=== PATIENT | male | born 1940 | race Caucasian/White ===

== ENCOUNTER 2017-10-20 21:42 | Emergency (ER) | payer MEDICARE, OTHER, SELFPAY ==
[2017-10-20 22:05] VITALS: BP 189/103; PULSE 63; RESP 16; TEMP 36.3; O2SAT 96; BMI 28.0
--- NOTE | 2017-10-20 22:30 | ED.ABDPAIN ---
HPI - Abdominal Pain General Chief Complaint: Abdominal Pain Stated Complaint: LOWER RIGHT SIDE STOMACH PAIN Time Seen by Provider: 10/20/17 21:43 Source: patient Mode of arrival: ambulatory Limitations: no limitations History of Present Illness HPI narrative: Patient is a 76-year-old male here for evaluation of right lower abdomen pain. He states that it has been off and on for the past week. He states that he has had a constant pain with sharp increases the pain. He also reports that he has had a bulge in his right inguinal area that comes and goes depending on his position. No testicular pain. Has had a hernia repair in the past but that has been many years ago. No change in bowel habits. No vomiting. No fevers. He came into the emergency department today because he finally told his about the symptoms who encouraged him to come to the ER. Related Data Home Medications Medication Instructions Recorded Confirmed CA PANTOTHENATE/FOLIC ACID/VIT 1 PO AMINS #0 12/05/10 (MULTIVITAMIN) metoprolol succinate [Toprol XL] 100 mg PO BID #0 06/26/12 rivaroxaban [Xarelto] 10 mg PO QPM #0 11/22/16 losartan 50 mg PO QDAY #0 02/13/17 nitroglycerin [Nitrostat] 0.4 mg SUBLINGUAL PRN PRN #0 02/13/17 sotalol 120 mg PO BID #0 02/13/17 Allergies Allergy/AdvReac Type Severity Reaction Status Date / Time No Known Drug Allergies Allergy Verified 10/20/17 22:10 Review of Systems Constitutional Denies fatigue and Denies fever(s) ENT Ears, Nose, Mouth, and Throat: Denies dysphagia, Denies vertigo and Denies dizziness Cardiovascular Denies chest pain and Denies dyspnea Respiratory Denies cough and Denies dyspnea Gastrointestinal Gastrointestinal: Reports abdominal pain, Denies dysphagia, Denies diarrhea, Denies nausea and Denies vomiting Genitourinary Denies genital lesions, Denies genital pain, Denies dysuria, Denies nocturia, Denies scrotal swelling and Denies testicular mass Musculoskeletal Denies myalgias and Denies arthralgias Integumentary/Breasts Denies lesions and Denies rash Neurologic Denies vertigo and Denies dizziness Endocrine Denies fatigue Hematologic/Lymphatic Denies easy bleeding and Denies easy bruising [facility] Medical History Cataract (lens) fragments in eye following cataract surgery, bilateral (Acute) Inguinal hernia (Acute) Social History Smoking Status: Never smoker Exam Initial Vital Signs Initial Vital Signs: Vital Signs Temperature 97.3 F L 10/20/17 22:05 Pulse Rate 63 10/20/17 22:05 Respiratory Rate 16 10/20/17 22:05 Blood Pressure 189/103 H 10/20/17 22:05 Pulse Oximetry 96 10/20/17 22:05 Const General: cooperative, healthy appearing and comfortable Orientation: alert, awake and oriented x3 HENMT Head: normal to inspection and normocephalic Resp Effort & Inspection: normal respiratory effort Auscultation: clear to auscultation bilaterally Cardio Rate: regular rate Rhythm: regular rhythm GI Inspection: non-distended Palpation: soft, No firm and No tender External: normal external exam and no edema Penis: normal penis Scrotum: scrotum normal Testes: normal Other: At the spot of tenderness in the right inguinal area I did feel what appears to be a defect in the abdominal wall. No protrusions from this area. No bowel felt. Skin Lesions: no lesions Rashes: no rashes Neuro General: alert, awake and oriented x3 Extrem General: normal to inspection Course Orders Ordered: ED Orders 10/20/17 23:05 Basic Metabolic Panel Stat Complete Blood Count AUTO DIFF Stat Lactate (Lactic Acid) Stat Vital Signs - 8 hr 10/20/17 22:05 10/20/17 23:30 10/21/17 00:22 Temperature 97.3 F L 97.9 F Pulse Rate 63 57 L 56 L Respiratory Rate 16 16 14 Blood Pressure 189/103 H 170/99 H Blood Pressure [Right Arm] 173/103 H Pulse Oximetry 96 98 99 MDM - Abdominal Pain Lab Data Attestation: I reviewed the patient's lab results. Result diagrams: 10/20/17 23:05 10/20/17 23:05 Lab Results 10/20/17 10/20/17 10/20/17 Range/Units 23:05 23:05 23:05 WBC 4.1 L (4.5-11.0) X10^3/uL RBC 4.93 (4.5-5.9) X10^6/uL Hgb 15.8 (13.5-17.5) g/dL Hct 45.3 (41-53) % MCV 92.0 (80-100) fL MCH 32.1 (26-34) PG MCHC 34.9 (30-36) % RDW 12.8 (11.6-14.8) % Plt Count 125 L (150-400) X10^3/uL Neut % (Auto) 55.8 (50-75) % Lymph % (Auto) 28.9 (25-40) % [place] % (Auto) 10.8 (3-14) % Eos % (Auto) 4.2 H (2-4) % Baso % (Auto) 0.3 (0-2) % Neut # (Auto) 2300 L (5483-0937) /uL Sodium 142 (137-145) mmol/L Potassium 4.1 (3.4-5.1) mmol/L Chloride 105 (98-107) mmol/L Carbon Dioxide 27 (22-32) mmol/L BUN 25 H (9-20) mg/dL Creatinine 1.50 H (0.66-1.25) mg/dL Estimated GFR 45.3 L (>60) mL/min BUN/Creatinine Ratio 16.7 (6-22) Glucose 100 (80-110) mg/dL Lactate 0.9 (0.7-2.1) mmol/L Calcium 9.4 (8.4-10.2) mg/dL MDM Narrative Medical decision making narrative: Patient with a relatively benign exam here in the emergency department. At the spot of greatest pain in his right inguinal region I did feel what appears to be a defect in the abdominal wall. This is concerning for a inguinal hernia. This also fits with his history of a ?bulging ?area down there. He states that it is not bulging currently. Will hold on a CT scan for now. Currently of low suspicion for AA incarcerated/strangulated hernia. We did discuss that he needed to contact his primary doctor to discuss the indications for a referral to see General surgery. He was given return precautions. He expressed understanding and agreement with plan. Discharge Plan Departure Patient Disposition: Home Clinical Impression: Abdominal pain Discharge Date/Time: 10/21/17 00:25 Interventions: ED Discharge Assessment Last Done: 10/21/17 00:22 Instructions: DI for Abdominal Pain-Adult Activity Restrictions/Additional Instructions: Your physical exam today is fairly consistent with a hernia. Recommend that you contact your primary doctor on Monday to discuss a consult to see General surgery. Return to the emergency department for any new symptoms, fevers, worsening abdominal pain, a bulge that does not go back in, change in her bowel habits. Like we discussed I also recommend that you spent time sitting on the couch with your feet elevated. Prescriptions: No Action CA PANTOTHENATE/FOLIC ACID/VIT (MULTIVITAMIN) 1 PO AMINS Qty: 0 RF: 0 metoprolol succinate [Toprol XL] 50 MG tablet extended release 24 hr 100 mg PO BID Qty: 0 RF: 0 rivaroxaban [Xarelto] 10 MG tablet 10 mg PO QPM Qty: 0 RF: 0 losartan 50 MG tablet 50 mg PO QDAY Qty: 0 RF: 0 sotalol 120 MG tablet 120 mg PO BID Qty: 0 RF: 0 nitroglycerin [Nitrostat] 0.4 MG tablet, sublingual 0.4 mg Sublingual PRN PRNQty: 0 RF: 0
[2017-10-20 23:23] LABS: Add Manual Diff / Slide Review NO; Basophils Percent Auto 0.3 % (0-2); Eosinophils Percent Auto 4.2 % (2-4); Hematocrit 45.3 % (41-53); Hemoglobin 15.8 g/dL (13.5-17.5); Lymphocytes Percent Auto 28.9 % (25-40); Mean Corpuscular HGB Conc 34.9 % (30-36); Mean Corpuscular Hemoglobin 32.1 PG (26-34); Monocytes Percent Auto 10.8 % (3-14); Neutrophils Absolute Auto 2300 /uL (3000-5900); Neutrophils Percent Auto 55.8 % (50-75); Platelet Count 125 X10^3/uL (150-400); Red Blood Cell Count 4.93 X10^6/uL (4.5-5.9); Red Cell Distribution Width 12.8 % (11.6-14.8); White Blood Cell Count 4.1 X10^3/uL (4.5-11.0)
[2017-10-20 23:29] LABS: Lactate (Lactic Acid) 0.9 mmol/L (0.7-2.1)
[2017-10-20 23:30] VITALS: BP 173/103; PULSE 57; RESP 16; TEMP 36.6; O2SAT 98
[2017-10-20 23:30] LABS: BUN Creatinine Ratio 16.7 (6-22); Blood Urea Nitrogen 25 mg/dL (9-20); Calcium 9.4 mg/dL (8.4-10.2); Carbon Dioxide 27 mmol/L (22-32); Chloride 105 mmol/L (98-107); Estimated Glomerular Filt Rate 45.3 mL/min (>60); Glucose 100 mg/dL (80-110); HEMOLYSIS 21 (0-50); Potassium 4.1 mmol/L (3.4-5.1); Sodium 142 mmol/L (137-145)
[2017-10-21 00:22] VITALS: BP 170/99; PULSE 56; RESP 14; O2SAT 99
== END 2017-10-21 00:25 | disposition home or self-care (01) ==
PROVIDERS: Emergency Provider Emergency Medicine
DX: R10.9 Unspecified abdominal pain (principal)
CPT/HCPCS: 36591; 80048; 83605; 85025; 99282; 99283

== ENCOUNTER 2017-12-25 08:10 | Emergency (ER) | payer MEDICARE, OTHER, SELFPAY ==
--- NOTE | 2017-12-25 08:13 | ED_ITS ---
HPI - Epistaxis General Chief complaint: Nasal Problem Stated complaint: nosebleed Time Seen by Provider: 12/25/17 08:12 Source: patient Mode of arrival: ambulatory Limitations: no limitations History of Present Illness HPI Narrative: 77-year-old male here for evaluation of a nosebleed. He is on Xarelto for atrial fibrillation. He states that the bleeding started this morning. He states that it seemed to be coming out of both nostrils. He did try pressure on his nose this morning for about an hour. He has had a nosebleed in the past requiring packing. Related Data Home Medications Medication Instructions Recorded Confirmed rivaroxaban [Xarelto] 10 mg PO QPM #0 11/22/16 12/25/17 losartan 25 mg PO BID #0 02/13/17 12/25/17 nitroglycerin [Nitrostat] 0.4 mg SUBLINGUAL PRN PRN #0 02/13/17 12/25/17 amlodipine 5 mg PO DAILY 12/25/17 12/25/17 carvedilol 1 tab PO BID 12/25/17 12/25/17 penicillin V potassium 250 mg PO QID 12/25/17 12/25/17 sotalol 120 mg PO DAILY 12/25/17 12/25/17 Allergies Allergy/AdvReac Type Severity Reaction Status Date / Time No Known Drug Allergies Allergy Verified 10/20/17 22:10 Review of Systems Constitutional Denies fever(s) ENT Ears, Nose, Mouth, and Throat: Reports epistaxis Comments: Blood coming from left nostril Cardiovascular Denies chest pain and Denies dyspnea Respiratory Denies dyspnea Integumentary/Breasts Denies rash Hematologic/Lymphatic Reports easy bleeding and Reports easy bruising [facility] Medical History Atrial fibrillation (Acute) Cataract (lens) fragments in eye following cataract surgery, bilateral (Acute) Inguinal hernia (Acute) Surgical History No pertinent past surgical history (Acute) Social History Smoking Status: Never smoker Exam Initial Vital Signs Initial Vital Signs: Vital Signs Temperature 97.2 F L 12/25/17 08:19 Pulse Rate 78 12/25/17 08:19 Respiratory Rate 16 12/25/17 08:19 Blood Pressure 182/106 H 12/25/17 08:19 Pulse Oximetry 99 12/25/17 08:19 Const General: cooperative, well developed, well groomed and No acute distress Orientation: alert, awake and oriented x3 Resp Effort & Inspection: normal respiratory effort Skin Lesions: no lesions Rashes: no rashes Neuro General: alert, awake and oriented x3 Extrem General: normal to inspection and capillary refill normal Psych Appearance: grossly normal and well kempt Procedures Epistaxis Control Time Out Performed: Yes Nostril: left Nose Prepped With: oxymetazoline Direct Inspection: yes and unable to visualize Clots Removed by: blowing nose and suction Cautery Used: none Device Inserted: hemostatic balloon Patient Tolerated Procedure: well and no complications Complications: continued epistaxis Course Orders Ordered: Discontinued Medications Oxymetazoline HCl (Afrin) 2 sprays NASAL NOW ONE Stop: 12/25/17 08:48 Last Admin: 12/25/17 08:48 Dose: 2 sprays Vital Signs - 8 hr 12/25/17 08:19 12/25/17 08:24 12/25/17 09:30 Temperature 97.2 F L 97.2 F L Pulse Rate 78 78 84 Respiratory Rate 16 16 16 Blood Pressure 182/106 H 182/106 H Blood Pressure [Left Arm] 144/84 H Pulse Oximetry 99 99 97 12/25/17 11:23 12/25/17 12:10 Temperature 97.4 F L Pulse Rate 68 88 Respiratory Rate 16 Blood Pressure 143/100 H Blood Pressure [Left Arm] 143/88 H Pulse Oximetry 97 99 MDM - Epistaxis MDM Narrative Medical decision making narrative: Unable to stop the bleeding with direct pressure. We were able to control it somewhat and it does seem to be of coming from the left nostril. I was unable to visualize the exact location of the bleeding. It seems to be posterior and the inferior turbinates on the left side is large enough for a cannot see it. I tried Afrin without any improvement. I did use a rhino rocket which seem to slow down the bleeding however he continued to ooze from the front to the point were he had to continue to wipe his nose. He reports that the blood running down the back of his throat has greatly improved. I discussed the case with Dr. Vences with ENT who offered to see the patient in his office. Will discharge the patient from the emergency department and sent him to the ENT office for evaluation. Discharge Plan Departure Patient Disposition: Home Clinical Impression: Epistaxis Interventions: ED Discharge Assessment Last Done: 12/25/17 12:10 Instructions: DI for Nosebleed Activity Restrictions/Additional Instructions: After discharge from the emergency department your to go to the [facility] ENT office to see Dr. Vences. He is expecting you. The phone number to the office is [phone]. I do recommend that you stop your Xarelto for this evening for until the bleeding stops. Call your primary care doctor for follow-up. Prescriptions: No Action rivaroxaban [Xarelto] 10 MG tablet 10 mg PO QPM Qty: 0 RF: 0 losartan 50 MG tablet 25 mg PO BID Qty: 0 RF: 0 nitroglycerin [Nitrostat] 0.4 MG tablet, sublingual 0.4 mg Sublingual PRN PRN (Reason: Chest Pain) Qty: 0 RF: 0 carvedilol 6.25 mg tablet 1 tab PO BID RF: 0 penicillin V potassium 500 mg tablet 250 mg PO QID RF: 0 amlodipine 5 mg tablet 5 mg PO DAILY RF: 0 sotalol 240 mg tablet 120 mg PO DAILY RF: 0
[2017-12-25 08:19] VITALS: BP 182/106; PULSE 78; RESP 16; TEMP 36.2; O2SAT 99
[2017-12-25 08:24] VITALS: BP 182/106; PULSE 78; RESP 16; TEMP 36.2; O2SAT 99
--- NOTE | 2017-12-25 08:32 | PC.NURSE ---
nasal clamp placed at triage
--- NOTE | 2017-12-25 08:45 | PC.NURSE ---
cont to have nasal clamp on md aware
[2017-12-25] MEDS: OXYMETAZOLINE NASAL SPRAY 15 ML 2 SPRAYS NASAL (08:48)
[2017-12-25 09:30] VITALS: BP 144/84; PULSE 84; RESP 16; O2SAT 97
[2017-12-25 11:23] VITALS: BP 143/88; PULSE 68; O2SAT 97
--- NOTE | 2017-12-25 11:59 | PC.NURSE ---
Andrea per Dr. Ramsey;
[2017-12-25 12:10] VITALS: BP 143/100; PULSE 88; RESP 16; TEMP 36.3; O2SAT 99
== END 2017-12-25 12:21 | disposition home or self-care (01) ==
PROVIDERS: Emergency Provider Emergency Medicine
DX: R04.0 Epistaxis (principal)
CPT/HCPCS: 30903; 30905; 99282; 99283

== ENCOUNTER → 2020-08-31 11:48 | Outpatient (CLI) | payer MEDICARE, OTHER, SELFPAY ==
--- NOTE | 2020-08-31 11:56 | DI.RAD.S_ITS ---
PROCEDURE: XR KNEE RT 3V INDICATIONS: RT KNEE PAIN TECHNIQUE: 3 views of the knee were acquired. COMPARISON: None. FINDINGS: Bones: No fracture. Moderate narrowing of the medial joint space. Scattered degenerative subchondral sclerosis and spurring. Soft tissues: Moderate joint effusion. IMPRESSION: Moderate osteoarthritis Moderate joint effusion. Dictated by: Roberto Carlos Lewis M.D. on 08/31/2020 at 13:22 Approved by: Roberto Carlos Lewis M.D. on 08/31/2020 at 13:23
== END ==
PROVIDERS: PCP Family Medicine; Referring Provider Family Medicine; Visit Provider Family Medicine
DX: M25.561 Pain in right knee (principal); M17.11 Unilateral primary osteoarthritis, right knee; M25.461 Effusion, right knee
CPT/HCPCS: 73562

== ENCOUNTER → 2020-10-14 08:59 | Outpatient (CLI) | payer MEDICARE, OTHER, SELFPAY ==
[2020-10-14 11:46] LABS: COVID19 -Nasal RAPID Negative (Negative)
== END ==
PROVIDERS: PCP Family Medicine; Visit Provider Student in an Organized Health Care Education/Training Program
DX: Z01.812 Encounter for preprocedural laboratory examination (principal); Z20.822 Contact with and (suspected) exposure to COVID-19
CPT/HCPCS: 87635; C9803

== ENCOUNTER → 2020-10-15 08:47 | Outpatient (CLI) | payer MEDICARE, OTHER, SELFPAY ==
--- NOTE | 2020-10-16 05:23 | DI.NM.S_ITS ---
DATE OF SERVICE: PROCEDURE: Pharmacological perfusion study. DATE OF STUDY: 10/15/2020 INDICATIONS: Nonsustained ventricular tachycardia with history of atrial fibrillation, hypertension, hyperlipidemia. RADIOPHARMACEUTICAL: 25.5 mCi technetium 99m Myoview IV was injected at stress and 11.4 mCi of technetium 99m Myoview IV was injected at rest. CARDIAC STRESS: The patient underwent IV Lexiscan perfusion study under the supervision of an attending staff as per standard protocol. Baseline rhythm was sinus with first degree AV block. During stress, no convincing ischemic changes or new arrhythmias seen. No chest pain. Patient remained hemodynamically stable with baseline blood pressure 108/60 and heart rate 63 beats per minute. RAW DATA: There is increased subdiaphragmatic activity. GATED STUDY: The resting LV ejection fraction is 66 percent and stress LV ejection fraction is 71 percent. Resting end diastolic volume is 61 mL. Lung/heart ratio is 0.32, which is within normal limits. No significant wall motion abnormality seen. TID ratio is 1.89, which is abnormal. MYOCARDIAL PERFUSION SCAN: The stress supine, resting supine and stress prone images were compared to each other. Stress supine images revealed small to moderate size, mildly decreased perfusion of the inferior wall extending into the inferolateral wall as well as inferior apex. Resting supine images also revealed similar defects. During stress prone images, inferior wall, inferior apical as well as inferolateral defect got completely resolved, suggestive of diaphragmatic tissue attenuation artifact. CONCLUSION: There is normal myocardial perfusion during stress prone images with evidence of diaphragmatic tissue attenuation artifact. However, the patient has abnormal TID. TID ratio 1.89, which is abnormal even for pharmacological stress test. Abnormal TID usually suggests left main or multivessel disease with possibility of balanced ischemia, which will not show up during perfusion. Correlate clinically and if clinical suspicion for coronary artery disease is high, consider left heart catheterization. Per [facility] - JESSICA/do/devang doc#: [id number]/job#: [id number] dd: 10/15/2020 17:55:00 dt: 10/16/2020 05:12:00 DICTATING MD/COPIES TO: Cayetano Alston MD; MARVEL Chun COPIES MNE: DORIAN;
== END ==
PROVIDERS: PCP Family Medicine; Referring Provider Nurse Practitioner Family; Visit Provider Nurse Practitioner Family
DX: R94.39 Abnormal result of other cardiovascular function study (principal); I47.2 Ventricular tachycardia; I48.91 Unspecified atrial fibrillation; I10 Essential (primary) hypertension; E78.5 Hyperlipidemia, unspecified
CPT/HCPCS: 78452; 93017; A9502; J2785

== ENCOUNTER 2020-11-15 03:22 | Emergency (ER) | payer MEDICARE, OTHER, SELFPAY ==
[2020-11-15] VITALS (8 sets, daily range): BP systolic 101–170; BP diastolic 61–82; PULSE 55–62; RESP 13–18; TEMP 36.2; O2SAT 95–98; BMI 23.3
[2020-11-15] MEDS: OXYMETAZOLINE NASAL SPRAY 15 ML 2 SPRAYS NASAL (03:49)
[2020-11-15] MEDS: SODIUM CHLORIDE 0.9% 1,000 ML 1000 ML IV (04:00)
--- NOTE | 2020-11-15 04:09 | ED.EPISTAXIS ---
HPI - Epistaxis General Chief complaint: Nasal Problem Stated complaint: Epistaxis Time Seen by Provider: 11/15/20 03:30 Source: patient and EMS Mode of arrival: EMS Limitations: no limitations History of Present Illness HPI Narrative: Patient is a 79-year-old male with history of atrial fibrillation on Eliquis with previous nose bleed requiring cauterization. Presenting today again with nose bleed. Starting suddenly a couple hours ago. They tried to control it at home but state it was pouring out. Running down his throat only using a towel to clamp it. No dizziness or lightheadedness. Related Data Home Medications Medication Instructions Recorded Confirmed rivaroxaban 10 mg tablet (Xarelto) 10 mg PO QPM #0 11/22/16 12/25/17 losartan 50 mg tablet 25 mg PO BID #0 02/13/17 12/25/17 nitroglycerin 0.4 mg sublingual 0.4 mg SUBLINGUAL PRN PRN #0 02/13/17 12/25/17 tablet (Nitrostat) amlodipine 5 mg tablet 5 mg PO DAILY 12/25/17 12/25/17 carvedilol 6.25 mg tablet 1 tab PO BID 12/25/17 12/25/17 penicillin V potassium 500 mg 250 mg PO QID 12/25/17 12/25/17 tablet sotalol 240 mg tablet 120 mg PO DAILY 12/25/17 12/25/17 Allergies Allergy/AdvReac Type Severity Reaction Status Date / Time No Known Drug Allergies Allergy Verified 11/15/20 03:29 Review of Systems Review of Systems Narrative: GENERAL: Denies chills,fever HEENT: See HPI RESPIRATORY: Denies dyspnea, cough, wheezing CARDIOVASCULAR: Denies chest pain, palpitations GASTROINTESTINAL: Denies nausea, vomiting MUSCULOSKELETAL: Denies extremity pain, injury SKIN: No rash, no laceration, no pruritus NEUROLOGIC: Denies weakness, dizziness, headache, numbness 8 point review of systems is negative except for those stated above and HPI Patient History Medical History (Updated 11/15/20 @ 06:20 by Miriam Noyola DO) Atrial fibrillation Cataract (lens) fragments in eye following cataract surgery, bilateral Inguinal hernia Surgical History No pertinent past surgical history Social History (Reviewed 12/25/17 @ 08:27 by JUANITA Zepeda Smoking Status: Never smoker Smoking Status: Never smoker alcohol intake frequency: 0-2 drinks per day Substance Use Type: does not use Exam Initial Vital Signs Initial Vital Signs: Vital Signs Temperature 97.2 F L 11/15/20 03:29 Pulse Rate 62 11/15/20 03:29 Respiratory Rate 18 11/15/20 03:29 Blood Pressure 144/81 H 11/15/20 03:29 Pulse Oximetry 98 11/15/20 03:29 GENERAL: Alert 79-year-old male active epistaxis HEENT: Significant blood clot in right there draining down throat still bleeding CARDIOVASCULAR: peripheral pulses in tact, cap refill <2 sec RESPIRATORY: No respiratory distress, speaks in full sentences without difficulty EXTREMITIES: Normal range of motion, no clubbing or edema. Neurovascularly intact NEUROLOGICAL: Cranial nerves II through XII grossly intact. Normal gait and speech. SKIN: Warm, dry, no petechiae, no rashes or lesions. Course Orders Ordered: ED Orders 11/15/20 04:00 Complete Blood Count AUTO DIFF Stat Comprehensive Metabolic Panel Stat Partial Thromboplastin Time Stat Prothrombin Time INR Stat Type and Screen Stat Discontinued Medications Tranexamic Acid 1,000 mg/ (Sodium Chloride) 100 mls @ 200 mls/hr IV NOW ONE Stop: 11/15/20 04:27 Last Admin: 11/15/20 04:05 Dose: Not Given Documented by: BRIAN Sodium Chloride (Normal Saline 0.9%) 1,000 mls @ 1,000 mls/hr IV BOLUS ONE Stop: 11/15/20 05:04 Last Admin: 11/15/20 04:00 Dose: 1,000 mls/hr Documented by: BRIAN Oxymetazoline HCl (Oxymetazoline Nasal [place] 15 Ml) 2 sprays NASAL NOW ONE Stop: 11/15/20 03:29 Last Admin: 11/15/20 03:49 Dose: 2 sprays Documented by: REBECCA Silver Nitrate/Potassium Nitrate (Silver Nitrate Stick) 2 each TOP NOW ONE Stop: 11/15/20 04:11 Last Admin: 11/15/20 04:29 Dose: 2 each Documented by: BRIAN Vital Signs Vital signs: Vital Signs - 8 hr 11/15/20 03:29 11/15/20 04:04 11/15/20 04:08 Temperature 97.2 F L Pulse Rate 62 55 L 57 L Respiratory Rate 18 Blood Pressure 144/81 H 101/61 Pulse Oximetry 98 95 95 11/15/20 04:30 11/15/20 05:00 11/15/20 05:30 Temperature Pulse Rate 57 L 58 L 61 Respiratory Rate 15 13 16 Blood Pressure 137/82 151/81 H Pulse Oximetry 96 96 97 11/15/20 05:31 Temperature Pulse Rate 59 L Respiratory Rate 14 Blood Pressure 170/81 H Pulse Oximetry 97 MDM - Epistaxis Lab Data Result diagrams: 11/15/20 04:00 11/15/20 04:00 Labs: Lab Results 11/15/20 11/15/20 11/15/20 Range/Units 04:00 04:00 04:00 WBC 6.7 (4.5-11.0) X10^3/uL RBC 4.58 (4.5-5.9) X10^6/uL Hgb 14.2 (13.5-17.5) g/dL Hct 42.8 (41-53) % MCV 93.4 (80-100) fL MCH 31.0 (26-34) PG MCHC 33.1 (30-36) % RDW 13.4 (11.6-14.8) % Plt Count 162 (150-400) X10^3/uL Neut % (Auto) 82.0 H (50-75) % Lymph % (Auto) 8.9 L (25-40) % [place] % (Auto) 5.7 (3-14) % Eos % (Auto) 2.2 (2-4) % Baso % (Auto) 1.2 (0-2) % Neut # (Auto) 5500 (6566-7635) /uL Lymph # (Auto) 600 L (4066-3917) /uL [place] # (Auto) 400 (0-900) /uL Eos # (Auto) 100 (0-450) /uL Baso # (Auto) 100 (0-100) /uL PT 14.6 H (10.1-12.7) SECONDS INR 1.3 (0.9-1.3) APTT 31 (26.4-36.2) SECONDS Sodium 138 (137-145) mmol/L Potassium 4.5 (3.4-5.1) mmol/L Chloride 106 (98-107) mmol/L Carbon Dioxide 27 (22-32) mmol/L BUN 21 H (9-20) mg/dL Creatinine 1.21 (0.66-1.25) mg/dL Estimated GFR 57.6 L (>60) mL/min BUN/Creatinine Ratio 17.4 (6-22) Glucose 144 H (80-110) mg/dL Calcium 8.9 (8.4-10.2) mg/dL Total Bilirubin 0.7 (0.2-1.3) mg/dL AST 27 (17-59) IU/L ALT 21 (<50) IU/L Alkaline Phosphatase 51 (38-126) U/L Total Protein 6.8 (6.3-8.2) g/dL Albumin 4.1 (3.5-5.0) g/dL Globulin 2.7 (1.7-4.1) g/dL Albumin/Globulin Ratio 1.5 (1.0-2.8) Blood Type Antibody Screen 11/15/20 Range/Units 04:00 WBC (4.5-11.0) X10^3/uL RBC (4.5-5.9) X10^6/uL Hgb (13.5-17.5) g/dL Hct (41-53) % MCV (80-100) fL MCH (26-34) PG MCHC (30-36) % RDW (11.6-14.8) % Plt Count (150-400) X10^3/uL Neut % (Auto) (50-75) % Lymph % (Auto) (25-40) % [place] % (Auto) (3-14) % Eos % (Auto) (2-4) % Baso % (Auto) (0-2) % Neut # (Auto) (1393-5720) /uL Lymph # (Auto) (0087-8711) /uL [place] # (Auto) (0-900) /uL Eos # (Auto) (0-450) /uL Baso # (Auto) (0-100) /uL PT (10.1-12.7) SECONDS INR (0.9-1.3) APTT (26.4-36.2) SECONDS Sodium (137-145) mmol/L Potassium (3.4-5.1) mmol/L Chloride (98-107) mmol/L Carbon Dioxide (22-32) mmol/L BUN (9-20) mg/dL Creatinine (0.66-1.25) mg/dL Estimated GFR (>60) mL/min BUN/Creatinine Ratio (6-22) Glucose (80-110) mg/dL Calcium (8.4-10.2) mg/dL Total Bilirubin (0.2-1.3) mg/dL AST (17-59) IU/L ALT (<50) IU/L Alkaline Phosphatase (38-126) U/L Total Protein (6.3-8.2) g/dL Albumin (3.5-5.0) g/dL Globulin (1.7-4.1) g/dL Albumin/Globulin Ratio (1.0-2.8) Blood Type A Positive Antibody Screen Negative MDM Narrative Medical decision making narrative: Initial nasal clamp was used however he was still dripping quite badly out of the right knee air. Afrin and rhino rocket used. It was left in for well over an hour. Patient had much improved symptoms did still had some dripping actually from the left naris and a little bit down the throat. He got up to use the restroom and was having some more dripping decided to take rhino rocket out to assess were bleeding was coming from. His eye rhino rocket was removed actually did not see any bleeding. Patient coughed up an extremely large blood clot. Overall feeling significantly better. No source of bleeding is found. Discharge Plan Departure Patient Disposition: Home Clinical Impression: Epistaxis Instructions: DI for Nosebleed Activity Restrictions/Additional Instructions: *You have been diagnosed with nose bleed *What to do: I am so happy that we got here nose to stop bleeding. You may need to see ENT if this continues. If you should have repeat nosebleed at home. Place nasal clamp and try and find a position that stops bleeding with pressure. If after holding pressure for 30-60 minutes you are still bleeding having significant blood is run down throat please return to emergency department *Continue to take medications as directed *Follow up with your primary care provider in 2-3 days *Return to ER if you should have recurrent persistent nose bleed, dizziness, lightheadedness any new, worsening or concerning symptoms Prescriptions: No Action rivaroxaban [Xarelto] 10 MG tablet 10 mg PO QPM Qty: 0 RF: 0 losartan 50 MG tablet 25 mg PO BID Qty: 0 RF: 0 nitroglycerin [Nitrostat] 0.4 MG tablet, sublingual 0.4 mg Sublingual PRN PRN (Reason: Chest Pain) Qty: 0 RF: 0 carvedilol 6.25 mg tablet 1 tab PO BID RF: 0 penicillin V potassium 500 mg tablet 250 mg PO QID RF: 0 amlodipine 5 mg tablet 5 mg PO DAILY RF: 0 sotalol 240 mg tablet 120 mg PO DAILY RF: 0 Referrals: Elie Guillory MD [Primary Care Provider] -
--- NOTE | 2020-11-15 04:14 | PC.NURSE ---
I was summoned to bedside by who stated pt was having trouble breathing. Pt reported feeling faint, taking deep breaths. BP 88/55. Reports he can still feel blood going down the back of his throat. Dr Noyola summoned to bedside , IV started to R AC, labs drawn. 1L NS bolus started per order. Pt reports feeling better with fluids.
[2020-11-15 04:17] LABS: Add Manual Diff / Slide Review NO; Basophils Absolute Auto 100 /uL (0-100); Basophils Percent Auto 1.2 % (0-2); Eosinophils Absolute Auto 100 /uL (0-450); Eosinophils Percent Auto 2.2 % (2-4); Hematocrit 42.8 % (41-53); Hemoglobin 14.2 g/dL (13.5-17.5); Lymphocytes Absolute Auto 600 /uL (1100-4500); Lymphocytes Percent Auto 8.9 % (25-40); Mean Corpuscular HGB Conc 33.1 % (30-36); Mean Corpuscular Volume 93.4 fL (80-100); Monocytes Absolute Auto 400 /uL (0-900); Monocytes Percent Auto 5.7 % (3-14); Neutrophils Absolute Auto 5500 /uL (1500-7000); Platelet Count 162 X10^3/uL (150-400); Red Blood Cell Count 4.58 X10^6/uL (4.5-5.9); Red Cell Distribution Width 13.4 % (11.6-14.8); White Blood Cell Count 6.7 X10^3/uL (4.5-11.0)
[2020-11-15 04:24] LABS: INR 1.3 (0.9-1.3); Prothrombin Time 14.6 SECONDS (10.1-12.7)
[2020-11-15 04:26] LABS: PTT Partial Thromboplastin Tim 31 SECONDS (26.4-36.2)
[2020-11-15 04:27] LABS: Alanine Aminotransferase 21 IU/L (<50); Albumin 4.1 g/dL (3.5-5.0); Albumin Globulin Ratio 1.5 (1.0-2.8); Alkaline Phosphatase 51 U/L (38-126); Aspartate Aminotransferase 27 IU/L (17-59); BUN Creatinine Ratio 17.4 (6-22); Bilirubin Total 0.7 mg/dL (0.2-1.3); Blood Urea Nitrogen 21 mg/dL (9-20); Calcium 8.9 mg/dL (8.4-10.2); Carbon Dioxide 27 mmol/L (22-32); Chloride 106 mmol/L (98-107); Estimated Glomerular Filt Rate 57.6 mL/min (>60); Globulin 2.7 g/dL (1.7-4.1); Glucose 144 mg/dL (80-110); HEMOLYSIS < 15 (0-50); Potassium 4.5 mmol/L (3.4-5.1); Sodium 138 mmol/L (137-145); Total Protein 6.8 g/dL (6.3-8.2)
== END 2020-11-15 07:14 | disposition home or self-care (01) ==
PROVIDERS: Emergency Provider Emergency Medicine; PCP Family Medicine
DX: R04.0 Epistaxis (principal); Z79.01 Long term (current) use of anticoagulants
CPT/HCPCS: 36415; 80053; 85025; 85610; 85730; 86850; 86900; 86901; 96360; 96361; 99284; A9270

== ENCOUNTER → 2021-01-04 11:51 | Outpatient (CLI) | payer MEDICARE, OTHER, SELFPAY ==
--- NOTE | 2021-01-04 11:54 | DI.US.S_ITS ---
PROCEDURE: US CAROTID DOPPLER BI INDICATIONS: CAD TECHNIQUE: Color and pulse Doppler interrogation was performed of both carotid systems, with image documentation and velocity measurements. COMPARISON: None. FINDINGS: Stenosis calculations are based on SRU (Society of Radiologists in Ultrasound) criteria. The flow velocities and the arterial waveforms are normal within both carotid arterial systems. The estimated degree of internal carotid artery stenosis is less than 50%. Antegrade flow is confirmed within both vertebral arteries. IMPRESSION: No hemodynamically significant stenosis is seen. Dictated by: Denilson Nino M.D. on 01/04/2021 at 13:04 Approved by: Denilson Nino M.D. on 01/04/2021 at 13:04
--- NOTE | 2021-01-04 13:04 | DI.CT.S_ITS ---
PROCEDURE: CT CHEST WO CON INDICATIONS: Atherosclerotic heart disease of [place] coronary artery disease TECHNIQUE: Noncontrast 5 mm thick sections acquired from the pulmonary apices to the posterior costophrenic angles. 1 mm lung window, 5 mm thick coronal and sagittal and 7 mm axial MIP reformats were then acquired. For radiation dose reduction, the following was used: automated exposure control, adjustment of mA and/or kV according to patient size. COMPARISON: [facility], CT, ABDOMEN WITH CONTRAST, 04/02/2007, 8:39. FINDINGS: Image quality: Excellent. Lungs and pleura: No acute air space opacities. No pleural effusions or pneumothorax. Central and peripheral airways are patent and normal in caliber. Mediastinum: Heart size is normal. There is moderate coronary artery calcification. No pericardial effusion. No mediastinal adenopathy by size criteria. Thoracic aorta and central pulmonary arteries are normal in size. Esophagus is normal in caliber. Small hiatal hernia. Bones and chest wall: No suspicious bony lesions. No vertebral body compression fractures. No axillary or supraclavicular adenopathy by size criteria. Thyroid gland is normal. Abdomen: Multiple cyst in the superior pole of the left kidney, partially visualized. The largest cyst measuring 6.9 x 9.2 cm. Visualized upper abdominal solid organs and bowel loops appear normal in the absence of contrast. IMPRESSION: 1. No acute abnormalities. 2. Moderate coronary artery calcification. 3. Small hiatal hernia. 4. Partial visualization of left renal cysts. Dictated by: Rajat Donato M.D. on 01/04/2021 at 14:55 Approved by: Rajat Donato M.D. on 01/04/2021 at 15:00
== END ==
PROVIDERS: PCP Family Medicine; Referring Provider Thoracic Surgery (Cardiothoracic Vascular Surgery); Visit Provider Thoracic Surgery (Cardiothoracic Vascular Surgery)
DX: I25.119 Atherosclerotic heart disease of native coronary artery with unspecified angina pectoris (principal); I42.8 Other cardiomyopathies; I71.2 Thoracic aortic aneurysm, without rupture; K44.9 Diaphragmatic hernia without obstruction or gangrene; N28.1 Cyst of kidney, acquired; I35.9 Nonrheumatic aortic valve disorder, unspecified; I48.0 Paroxysmal atrial fibrillation
CPT/HCPCS: 71250; 93880

== ENCOUNTER → 2021-01-21 10:44 | Outpatient (CLI) | payer MEDICARE, OTHER, SELFPAY ==
--- NOTE | 2021-01-21 | DI.RAD.S_ITS ---
PROCEDURE: XR CHEST 2V INDICATIONS: Paroxysmal atrial fibrillation TECHNIQUE: 2 views of the chest were acquired. COMPARISON: [facility], , CHEST 2 VIEW, 02/13/2017, 13:33. FINDINGS: Surgical changes and devices: Sternotomy wires. Lungs and pleura: Scattered subsegmental atelectasis and/or scarring. No focal consolidation. No pleural effusion or pneumothorax. Mediastinum: Mediastinal contours are normal. Heart size is normal. Bones and chest wall: Bilateral shoulder degenerative changes. There is diffuse spondylosis IMPRESSION: Scattered subsegmental atelectasis and/or scarring. No focal consolidation. Dictated by: Roberto Carlos Lewis M.D. on 01/21/2021 at 15:11 Approved by: Roberto Carlos Lewis M.D. on 01/21/2021 at 15:12
== END ==
PROVIDERS: PCP Family Medicine; Referring Provider Physician Assistant; Visit Provider Physician Assistant
DX: I48.0 Paroxysmal atrial fibrillation (principal); Z95.1 Presence of aortocoronary bypass graft
CPT/HCPCS: 71046

== ENCOUNTER → 2021-05-13 09:27 | Outpatient (CLI) | payer MEDICARE, OTHER, SELFPAY ==
[2021-05-13 10:12] LABS: Add Manual Diff / Slide Review NO; Basophils Absolute Auto 100 /uL (0-100); Basophils Percent Auto 2.3 % (0-2); Eosinophils Absolute Auto 200 /uL (0-450); Eosinophils Percent Auto 4.9 % (2-4); Hematocrit 46.7 % (41-53); Hemoglobin 15.2 g/dL (13.5-17.5); Lymphocytes Absolute Auto 700 /uL (1100-4500); Lymphocytes Percent Auto 17.5 % (25-40); Mean Corpuscular HGB Conc 32.5 % (30-36); Mean Corpuscular Volume 86.2 fL (80-100); Monocytes Absolute Auto 400 /uL (0-900); Neutrophils Absolute Auto 2600 /uL (1500-7000); Neutrophils Percent Auto 65.3 % (50-75); Platelet Count 155 X10^3/uL (150-400); Red Blood Cell Count 5.42 X10^6/uL (4.5-5.9); Red Cell Distribution Width 16.1 % (11.6-14.8)
[2021-05-13 10:38] LABS: Hemoglobin A1C% w Est Avg Glu 5.6 % (4.0-6.0)
[2021-05-13 10:43] LABS: BUN Creatinine Ratio 17.1 (6-22); Blood Urea Nitrogen 18 mg/dL (9-20); Calcium 9.4 mg/dL (8.4-10.2); Carbon Dioxide 32 mmol/L (22-32); Chloride 102 mmol/L (98-107); Estimated Glomerular Filt Rate > 60.0 mL/min (>60); Glucose 98 mg/dL (80-110); HEMOLYSIS < 15 (0-50); Potassium 4.4 mmol/L (3.4-5.1); Sodium 141 mmol/L (137-145)
== END ==
PROVIDERS: PCP Family Medicine; Referring Provider Orthopaedic Surgery; Visit Provider Orthopaedic Surgery
DX: M25.561 Pain in right knee (principal); R73.9 Hyperglycemia, unspecified; Z01.812 Encounter for preprocedural laboratory examination
CPT/HCPCS: 36415; 80048; 83036; 85025

== ENCOUNTER → 2021-05-31 10:17 | Outpatient (CLI) | payer MEDICARE, OTHER, SELFPAY ==
[2021-05-31 12:18] LABS: COVID19 -Nasal RAPID Negative (Negative)
== END ==
PROVIDERS: PCP Family Medicine; Visit Provider Nurse Practitioner Family
DX: Z20.822 Contact with and (suspected) exposure to COVID-19 (principal)
CPT/HCPCS: 87635; C9803

== ENCOUNTER 2021-06-02 08:12 | Day surgery (SDC) | payer MEDICARE, OTHER, SELFPAY ==
[2021-05-24 08:28] VITALS: BMI 26.4
[2021-06-02] VITALS (15 sets, daily range): BP systolic 82–130; BP diastolic 57–85; PULSE 58–67; RESP 10–21; TEMP 35.9–36.6; O2SAT 94–98; BMI 25.9
--- NOTE | 2021-06-02 06:00 | DI.RAD.S_ITS ---
PROCEDURE: XR KNEE RT 1TO2V INDICATIONS: Post op total knee TECHNIQUE: 2 view(s) of the knee acquired. COMPARISON: [facility], CR, XR KNEE RT 3V, 08/31/2020, 11:53. FINDINGS: Bones: Patient is status post knee joint arthroplasty. Hardware components are in expected positions. Visualized bony structures are intact. Soft tissues: Overlying postoperative changes are noted. IMPRESSION: Expected appearance of right knee arthroplasty. Dictated by: Nataliia Nguyen M.D. on 06/02/2021 at 13:40 Approved by: Nataliia Nguyen M.D. on 06/02/2021 at 13:40
[2021-06-02] MEDS: CELECOXIB 200 MG CAPSULE PO (08:55)
[2021-06-02] MEDS: ACETAMINOPHEN 325 MG TABLET 975 MG PO (08:55)
[2021-06-02] MEDS: PREGABALIN 75 MG CAPSULE PO (08:56)
[2021-06-02] MEDS: LACTATED RINGERS 1,000 ML 42 ML IV ×2 (08:58→11:38)
--- NOTE | 2021-06-02 09:53 | PM.PREOP ---
Pre-operative Note COVID-19 COVID-19 status: Negative Result date/Date tested (Pos, Neg/Pending): 05/31/21 Interval Note History & Physical reviewed/Exam performed by Physician: Yes Changes to H&P: No
--- NOTE | 2021-06-02 10:30 | SUR.PREOP ---
Block start time [1030] . Monitoring initiated and maintained throughout procedure. Oxygen at 2LNP and medications given per/by anesthesiologist instructions. Patient tolerated lowered blood pressure without dizzyness or light headedness throughout procedure, no adverse reactions noted. Dr. Beard was aware of hypotension. Block end time [1040].
[2021-06-02] MEDS: CEFAZOLIN 2 GM/20 ML SYRINGE IV (11:12)
[2021-06-02] MEDS: TRANEXAMIC ACID 1,000 MG VIAL 1000 MG INJ (11:24)
--- NOTE | 2021-06-02 11:26 | SUR.OPER ---
Supine on padded OR bed. Pillow under head, arms secured on padded armboards <90 degree abduction. Safety belt across torso. Non-operative leg secured with tape over blanket over lower leg. Operative leg secured in DeMayo/Goldy/Nathe positioner. Foam padded brace at thigh of operative leg.
[2021-06-02] MEDS: BUPIVACAINE 0.25% (PF) 60 ML, EPINEPHrine 0.3 MG INJ (11:35)
[2021-06-02] MEDS: BUPIVACAINE LIPOSOME 266 MG/20 ML VIAL INJ (11:37)
[2021-06-02] MEDS: MORPHINE 4 MG/ML INJ INJ (12:00)
--- NOTE | 2021-06-02 12:40 | P.OP_ITS ---
Operative Date/Time/Diagnoses Date of procedure: 06/02/21 Time of procedure: 12:40 Pre-op diagnosis: Right knee osteoarthritis Post-op diagnosis: same Procedure & Clinicians Procedure: Right total knee replacement Same procedure as scheduled: Yes Indications: The patient has had progressively worsening right knee pain with radiographic changes consistent with arthritis. Non-operative management has failed and the patient has requested total knee replacement. The risks, benefits and alternatives to surgery were discussed with the patient prior to proceeding. Risks discussed included, but were not limited to, failure to relieve pain, stiffness, infection, nerve damage, deep venous thrombosis, pulmonary embolism, stroke, coma, heart attack, permanent paralysis and , as well as the potential need for eventual revision of the prosthetic. Surgeon: [facility] Counselor: Devon Kaye Click Yes if Unassisted: No Anesthesia Type: General, Spinal, Peripheral nerve block and Local Operative Notes Findings: Severe medial osteoarthritis with moderate lateral and patellofemoral osteoarthritis. Closure Type: primary Specimen(s): none sent Prosthetic devices, grafts, tissues, transplants, or devices: Implants used in this procedure were manufactured by the [employer] and [employer] and included the BCS II Journey total knee replacement with a size 5 cobalt chromium femoral component, size 6 right non porous tibial base plate, a 15 mm cross-linked polyethylene tibial insert and a 38 mm oval Rocio II patella. Applied: implant(s) Estimated Blood Loss (mL): 25 Blood products transfused: none Tourniquet time (min): 52 Procedure in detail: The patient was seen in the pre-operative area, where the patient identified the right knee as the operative site and this was marked with my initials. The patient received pre-operative antibiotics, and was taken to the operating room and placed on the operative table in the supine position. After satisfactory anesthesia, a inspector timers out was performed. The right leg was encircled with a tourniquet about the proximal thigh, and the leg was prepared from the toes to the tourniquet with ChloroPrep in the usual fashion and draped through sterile drapes. The leg was elevated and exsanguinated with Eschmark bandage and the tourniquet inflated to 250 mmHg pressure. The knee was approached through an approximately 18 cm incision centered over the patella and carried into the knee through a medial parapatellar arthrotomy. The anterior osteophytes and soft tissues were removed. The rotational landmarks of Alfredo's line and the transepicondylar axis were marked on the femur with electrocautery, and intramedullary guide holes for the femur and tibia were crea charlene. The distal femoral cut was made in 6 degrees of valgus using the intramedullary guide at the primary cut setting. The proximal tibial cut was then made using the intramedullary guide, taking 9 mm of bone off the less involved side. The extension gap was checked and the rotation of the femoral component confirmed with the gap balancing system. The anterior, posterior and chamfer cuts were then made. The posterior osteophytes and soft tissues were then removed. The posterior capsule was injected with part of a mixture of 50 ml 0.25% Marcaine mixed with 20 ml Exparel and 4 mg of morphine for post-operative pain control. The remainder of this mixture was injected into the capsule and subcutaneous tissues during cement curing. The tibia was prepared with the rotation set by an extra medullary guide. Trial tibial and femoral components were then placed and the intercondylar notch cut through the femoral trial. Range of motion was 0-135 degrees, with good stability throughout the range. The patella was then cut to accommodate the patellar prosthetic. There was no need for a lateral release. The trials were then removed, and the femoral hole plugged with a bone plug. The bone was prepared with pulsatile lavage, and dried with a sponge. Cement was applied and the final prosthetics placed. Excess cement was removed during and after cement curing. After confirming there was no extruded cement posteriorly, the final tibial insert was placed. The knee was copiously irrigated and the tourniquet deflated. Hemostasis was obtained. The capsule was closed with interrupted # 2 polyester suture. The subcutaneous layer was closed with 3-0 Vicryl, and the skin with a running 3-0 V-Lock suture and Dermabond. An Aquacel Ag dressing was applied and the patient was taken to recovery having tolerated the procedure well. Complications: none Post-operative Condition: stable Disposition: PACU Plan for aftercare: The patient will be maintained on a standard total knee replacement protocol with weight bearing as tolerated. The patient will receive aspirin and sequential compression devices for DVT prophylaxis. The patient will be discharged home when safe for the home environment.
[2021-06-02] MEDS: IBUPROFEN 400 MG TABLET PO ×3 (15:09→21:15)
[2021-06-02] MEDS: ACETAMINOPHEN 325 MG TABLET 650 MG PO ×2 (15:10→21:14)
[2021-06-02] MEDS: LACTATED RINGERS 1,000 ML 100 ML IV (15:13)
--- NOTE | 2021-06-02 15:25 | PT.IIE ---
Current Diagnoses Unilateral primary osteoarthritis, right knee (06/02/21) Surgery Performed Operation Date: 06/02/21 10:00 Actual Procedures p Total Knee Arthroplasty(Right) - Paolo Kauffman MD Medical History (Last Reviewed 06/02/21 @ 09:07 by Timothy Clark RN) Aortic valve disease Atrial fibrillation BCC (basal cell carcinoma) CAD (coronary artery disease) Cataract (lens) fragments in eye following cataract surgery, bilateral HLD (hyperlipidemia) HTN (hypertension) Inguinal hernia Nonischemic cardiomyopathy NSVT (nonsustained ventricular tachycardia) Osteoarthritis Sinus bradycardia Thoracic aortic aneurysm without rupture Physical Therapy Inpatient Evaluation/Re-Eval M1 PT/OT-IP Prior Functional Status Start: 06/02/21 16:54 Freq: NEEDED Status: Active Protocol: Document 06/02/21 15:25 AB (Rec: 06/02/21 17:05 AB [id number]) Medical Review Prior Functional Status Medical History Reviewed Yes Communication able to make needs known Mobility and Gait pt stated that he is indpeendent with all mobilities and ambulation without AD but occasionally uses a SPC depending on knee pain Social History Household Members spouse Living Arrangements House Number of Floors (Floors) Two Floors Number of Stairs To Enter/Railing? split level house : 7 steps wide rails to enter the house and then 7 steps R rail to get to bedroom level Home Environment High Toilet,Walk in Shower Home Equipment Front Wheel Walker,Straight Cane,Raised Toilet Seat w/ Armrests,Shower Seat with Backrest,Hand Held Shower Additional Social History Comment pt has a toilet safety frame M2 PT-IP Current Condition Start: 06/02/21 16:54 Freq: NEEDED Status: Active Protocol: Document 06/02/21 15:25 AB (Rec: 06/02/21 17:05 AB [email or web address]) Physical Therapy Current Condition Current Condition Evaluation Date 06/02/21 Treatment Diagnosis s/p R TKA; difficulty in walking Onset Date 06/02/21 M3 PT-IP Subjective Start: 06/02/21 16:54 Freq: NEEDED Status: Active Protocol: Document 06/02/21 15:25 AB (Rec: 06/02/21 17:05 AB [id number]) Subjective Physical Therapy Visit Type Type Initial Evaluation Visit Start Time 15:25 Visit Stop Time 16:21 Total Visit Minutes 56 Number of JAVA SOFTWARE Visits 0 Physical Therapy Visit Comments Patient Comments agreeable to do PT Therapy Pain Assessment Pain Present Pain Present Denied Pain M4 PT-IP Mobility and Gait Start: 06/02/21 16:54 Freq: NEEDED Status: Active Protocol: Document 06/02/21 15:25 AB (Rec: 06/02/21 17:05 [email or web address]) PT-Bed Mobility Assessment Supine to Sit Supine to Sit Minimal Assistance,1 Person Assistance Sit to Supine Sit to Supine Standby Assistance PT-Transfer Assessment Sit to and From Stand Sit to and from Stand Maximum Assistance,2 Person Assistance,Use of Upper Extremities Equipment Transfer Assistive Device Gait Belt,Front Wheeled Walker Orthotic/Prosthetic Devices or Brace: No Comments Mobility Comments spouse in room with pt. pt able to move his legs but stated that sensation is not back. can only feel 50% on LLE and ~ 20 % on RLE. completed supine to sit min A and cues for techniques. able to sit on EOB SBA. c/o lightheadedness. BP: 130/68. completed sit to stand max A x 2 and cues. initial max A x 2 for standing balance but after cueing for COG able to stand max A. pt able to take side steps to HOB mod to max A x 2 and max cues. completed sit to supine SBA. positioned pt in bed. call light and table placed within reach. Gait Assessment Comments Gait Comments steps towards HOB; further ambulation not attempted for safety due to pt's decrease LE sensation PT-Balance Assessment Sitting Balance and Reactions Static Sitting Balance Ability Good Dynamic Sitting Balance Ability Fair Standing Balance and Reactions Static Standing Balance Ability Poor Dynamic Standing Balance Ability Poor Device Used FWW M5 PT-IP Objective Assessments Start: 06/02/21 16:54 Freq: NEEDED Status: Active Protocol: Document 06/02/21 15:25 AB (Rec: 06/02/21 17:05 AB [id number]) Orientation Orientation/Cognition Level of Alertness Alert Orientation Name,Place,Situation Language Function Ability No Deficits Noted Safety Awareness Decreased Safety Awareness Memory Description No Deficits Noted Gross Range of Motion Lower Extremity ROM Assessment Within Functional Limits Strength Lower Extremity Strength Hip 4/5 Knee 4-/5 Coordination Assessment Gross Coordination Gross Coordination WNL Sensation Assessment Sensation Sensation Description Numbness Comments Sensation Comments stated that his BLE are still numb Muscle Tone Muscle Tone WNL Yes M6 PT-IP Treatment Start: 06/02/21 16:54 Freq: NEEDED Status: Active Protocol: Document 06/02/21 15:25 AB (Rec: 06/02/21 17:05 [email or web address]) Physical Therapy Treatment Exercises Exercises Heel Slides Education Education Provided Precautions,Weight Bearing Status,Post-Op Packet,Safety M7 PT-IP Assessment and Plan Start: 06/02/21 16:54 Freq: NEEDED Status: Active Protocol: Document 06/02/21 15:25 AB (Rec: 06/02/21 17:05 [email or web address]) PT Summary Assessment and Plan Potential Rehabilitation Potential Good Status of Condition at Evaluation Evolving Summary Impairments Pain,ROM,Strength,Balance, Coordination,Sensation,Tone, Cognition,Bed Mobility, Transfers,Gait,Activity Tolerance Assessment Summary pt s/p R TKA and just had surgery this morning. pt with LE motor control but still has decrease LE sensation affecting mobility and requiring 2 person assist at this time. pt will likely progress with mobility during hospital stay. caregiver training scheduled for tomorrow at 10 am. will continue to assess progress. Goals Bed Mobility Goal Independent Transfer Goal Independent,Front Wheeled Walker Gait Goal Independent,Front Wheel Walker Gait Distance 200 Other Goals up/down 7+7 steps R rail SBA Days to Meet Goals 5 Frequency of Treatment Frequency Of Treatment Twice a Day Treatment Plan Physical Therapy Treatment Plan Bed Mobility Training,Transfer Training,Gait Training, Therapeutic Exercise,Balance Retraining,Post Op Education, Discharge Planning,Hot or Cold Pack,Neuromuscular Re-ed, Coordination Retraining,Manual Therapy Other Recommendations and Next Treatment caregiver training 06/03 at 10 Focus am Weight Bearing Status Weight Bearing Status Weight Bear as Tolerated Allowed Weight Bearing Amount (enter % RLE WBAT or #) (%) Recommendations To Nursing Amount of Assist Needed 2 Person Assist Discharge Recommendations PT Discharge Recommendations Home with Assistance, Outpatient PT Transportation Needs at Discharge Private Vehicle
[2021-06-02] MEDS: OXYCODONE IR 5 MG TABLET PO ×2 (17:15→21:16)
[2021-06-02] MEDS: ATORVASTATIN 20 MG TABLET PO (17:16)
[2021-06-02] MEDS: ASPIRIN EC 81 MG TABLET PO (21:14)
[2021-06-02] MEDS: SOTALOL 80 MG TABLET 160 MG PO (21:14)
[2021-06-02] MEDS: METOPROLOL ER 50 MG TABLET PO (21:17)
[2021-06-02] MEDS: DOCUSATE 100 MG CAPSULE PO (21:17)
[2021-06-03] MEDS: IBUPROFEN 400 MG TABLET PO ×3 (01:54→09:21)
[2021-06-03] MEDS: LACTATED RINGERS 1,000 ML 100 ML IV (01:55)
[2021-06-03 01:58] VITALS: BP 123/72; PULSE 54; RESP 16; TEMP 36.9; O2SAT 96
[2021-06-03 05:19] LABS: Hematocrit 37.4 % (41-53); Hemoglobin 12.4 g/dL (13.5-17.5)
[2021-06-03 05:25] VITALS: BP 113/77; PULSE 60; RESP 16; TEMP 36.3; O2SAT 95
--- NOTE | 2021-06-03 07:43 | PM.DS.1 ---
History of Present Illness History of Present Illness Date Patient Seen: 06/03/21 Time Patient Seen: 07:43 Chief complaint: Knee pain Narrative: Knee pain is mild. Denies fever or chills. No nausea vomiting. Discharge Providers Provider Discharge Date: 06/03/21 Primary care physician: Elie Guillory MD Consults: 06/02/21 13:22 Consult to Discharge Planning Routine Comment: Consult to Physical Therapy Evaluate & Treat Comment: Physician Instructions: postop TKA protocol Discharge provider: Devon Kaye PA-C Summary Hospital Course Discharge Diagnosis: Right knee osteoarthritis Hospital Course: Right total knee replacement Same procedure as scheduled: Yes Indications: The patient has had progressively worsening right knee pain with radiographic changes consistent with arthritis. Non-operative management has failed and the patient has requested total knee replacement. The risks, benefits and alternatives to surgery were discussed with the patient prior to proceeding. Risks discussed included, but were not limited to, failure to relieve pain, stiffness, infection, nerve damage, deep venous thrombosis, pulmonary embolism, stroke, coma, heart attack, permanent paralysis and , as well as the potential need for eventual revision of the prosthetic. Surgeon: Paolo Kauffman Art Director: Devon Kaye Click Yes if Unassisted: No Anesthesia Type: General, Spinal, Peripheral nerve block and Local Operative Notes Findings: Severe medial osteoarthritis with moderate lateral and patellofemoral osteoarthritis. Closure Type: primary Specimen(s): none sent Prosthetic devices, grafts, tissues, transplants, or devices: Implants used in this procedure were manufactured by the [employer] and [employer] and included the BCS II Journey total knee replacement with a size 5 cobalt chromium femoral component, size 6 right non porous tibial base plate, a 15 mm cross-linked polyethylene tibial insert and a 38 mm oval Rocio II patella. Applied: implant(s) Estimated Blood Loss (mL): 25 Blood products transfused: none Tourniquet time (min): 52 Patient mid to the hospital for right total knee arthroplasty. Patient consented to the same. Patient taken operating room on June 02, 2021 underwent right total knee arthroplasty. Patient is back in his room recovering well as in stable condition. Patient will be discharged home today in stable condition if safe for home environment. Status at Discharge Cognitive/behavioral status at discharge: at baseline, oriented Functional status at discharge: uses cane/walker Overall status at discharge: patient is progressing back to baseline Exam Vital Signs (past 8 hours): - 06/03/21 01:58 06/03/21 05:25 Temperature 98.4 F 97.4 F L Pulse Rate 54 L 60 Respiratory Rate 16 16 Blood Pressure 123/72 113/77 Pulse Oximetry 96 95 Oxygen Delivery Method Room Air Oxygen Flow Rate 0 Narrative Exam Narrative: 80-year-old male resting comfortably in bed in no apparent distress. Dressing is Clean, dry, intact.. Motor functions intact bilateral lower extremities. Sensation grossly intact to light touch bilateral lower extremities. Const General: cooperative Orientation: alert Objective Labs Result Diagrams: 06/03/21 04:55 Labs: Laboratory Results - last 24 hr 06/03/21 04:55 Hgb 12.4 L Hct 37.4 L PFSH Medical History Aortic valve disease Atrial fibrillation BCC (basal cell carcinoma) CAD (coronary artery disease) Cataract (lens) fragments in eye following cataract surgery, bilateral HLD (hyperlipidemia) HTN (hypertension) Inguinal hernia Nonischemic cardiomyopathy NSVT (nonsustained ventricular tachycardia) Osteoarthritis Sinus bradycardia Thoracic aortic aneurysm without rupture Surgical History H/O cardiac radiofrequency ablation History of surgical procedure (06/2012) Hx of bilateral cataract extraction Hx of hernia repair Hx of tonsillectomy (1943) 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) Social History household members: spouse Smoking Status: Never smoker alcohol intake: never Discharge Assessment & Plan Assessment and Plan Assessment: Patient progressing as expected status post right total knee replacement Plan of Treatment: Multimodal pain management Mobilize with physical therapy Discharge home today after physical therapy if safe for home environment Discharge Plan Discharge Plan Patient Disposition: Home Discharge orders & Medications Discharge Orders: Discharge (Order); Ordered 06/03/21 Ordered By: Devon Kaye Prescriptions: New acetaminophen 325 mg Tablet 650 mg PO TID Qty: 60 0RF aspirin 81 mg Tablet,Delayed Release (Dr/Ec) 81 mg PO BID Qty: 60 0RF ibuprofen 400 mg Tablet 400 mg PO Q4HR Qty: 60 0RF oxycodone 5 mg Tablet 5 mg PO Q3HR PRN (Reason: Pain, Moderate (4-6)) Qty: 60 0RF Continued sotalol 160 mg Tablet 160 mg PO BID 0RF atorvastatin 20 mg Tablet 20 mg PO QPM 0RF metoprolol succinate 50 mg Tablet Extended Release 24 Hr 50 mg PO BID 0RF Follow up/Referrals: Paolo Kauffman MD [Physician] - (2 weeks) Elie Guillory MD [Primary Care Provider] - Diet/Activity/Treatments Diet: Diet as Tolerated Activity: Weight-bearing as tolerated Cold/Heat Therapy: Ice to knee as needed Skin/Wound/Dressing Care Report to your healthcare provider any signs of infection, such as:: chills, fever, increased pain, unusual drainage and unusual redness Dressing: Keep dressing clean and dry, may remove Gustavo wrap after 24-48 hours, leave dressing in place Visit Report/Discharge Packet Instructions: DI for Knee Replacement Stand Alone Forms: Surgery Discharge Discharge Data Primary Care Provider: Elie Guillory Attending Provider: Paolo Kauffman Quality VTE Deep Vein Thrombosis/Pulmonary Embolism Present on Admission: No
[2021-06-03 08:00] VITALS: BP 116/73; PULSE 81; RESP 19; TEMP 36.6; O2SAT 94
[2021-06-03] MEDS: ACETAMINOPHEN 325 MG TABLET 650 MG PO (09:20)
[2021-06-03] MEDS: METOPROLOL ER 50 MG TABLET PO (09:21)
[2021-06-03] MEDS: DOCUSATE 100 MG CAPSULE PO (09:21)
[2021-06-03] MEDS: ASPIRIN EC 81 MG TABLET PO (09:21)
[2021-06-03] MEDS: OXYCODONE IR 5 MG TABLET PO (09:22)
[2021-06-03] MEDS: SOTALOL 80 MG TABLET 160 MG PO (09:22)
--- NOTE | 2021-06-03 11:01 | PT.IPTN ---
Current Diagnoses Unilateral primary osteoarthritis, right knee (06/02/21) Surgery Performed Operation Date: 06/02/21 10:00 Actual Procedures p Total Knee Arthroplasty(Right) - Paolo Kauffman MD Physical Therapy Treatment Note M2 PT-IP Current Condition Start: 06/02/21 16:54 Freq: NEEDED Status: Discharge Protocol: Document 06/03/21 10:08 SP (Rec: 06/03/21 16:04 SP [id number]) Physical Therapy Current Condition Current Condition Evaluation Date 06/02/21 Treatment Diagnosis s/p R TKA; difficulty in walking Onset Date 06/02/21 M3 PT-IP Subjective Start: 06/02/21 16:54 Freq: NEEDED Status: Discharge Protocol: Document 06/03/21 10:08 SP (Rec: 06/03/21 16:04 SP [id number]) Subjective Physical Therapy Visit Type Type Treatment Note Visit Start Time 10:08 Visit Stop Time 11:01 Total Visit Minutes 53 Notes present when arrived. She donned gait belt and provided assist requried during tx. Extra time with answering questions and wanting to review ex and mobility for assurance. Vitals during tx: supine: BP 116/ 73 HR 58 Seated: 126/76 HR 60 SaO2 96% on RA. nonsymptomatic/ denied dizziness throughout tx. Number of TRUCKMAN Visits 1 Physical Therapy Visit Comments Patient Comments Pt willing to work with therapy. Patient Goals Return home with to assist him and already set up with outpt therapy. Therapy Pain Assessment Pain When Pain Assessed During Mobility Pain Present Pain Present Pain Reported Location Right Knee Intensity 1 Scale Used at rest, little more with mobility Description With Movement Pain Behaviors Facial Grimacing Pain Management Techniques Distraction,Modification of Treatment,Re-positioning, Timing of Activity with Medications M4 PT-IP Mobility and Gait Start: 06/02/21 16:54 Freq: NEEDED Status: Discharge Protocol: Document 06/03/21 10:08 SP (Rec: 06/03/21 16:04 SP [id number]) PT-Bed Mobility Assessment Supine to Sit Supine to Sit Standby Assistance Scooting Scooting to Edge of Bed Standby Assistance PT-Transfer Assessment Sit to and From Stand Sit to and from Stand Contact Guard Assistance,1 Person Assistance,Use of Upper Extremities Equipment Transfer Assistive Device Gait Belt,Front Wheeled Walker Orthotic/Prosthetic Devices or Brace: No Transfers Transfer Destination Chair,Wheelchair Transfer Technique pt ambulated using FWW Transfer Ability Level of Assist Contact Guard Assistance,Use of Upper Extremities Comments Mobility Comments Pt supine when arrived, in room. Instructed post op exercises: 5 reps each. supine >sit, scoot to EOB SBA. donned gait belt. SIt>stand CGA, cued quad facilitation for awareness of RLE knee extension for stabiltiy for gait, improved more extension with wt shift pre gait. Progressed gait in hallway to stairs w/ FWW cGA approx 110 ft 1 brief stop stand rests w/ c follow for safety if needed. Pt rested in w/c at stairs. Completed 15 stairs R HR and SPC in LUE to assimulated stair mgt into home and bedroom, CGA via . Pt required 2 stand rests during sets stairs for tiring recovery. Pt requested seated rest in w/c and assist back to room in w/c, due to tiring post stairs. Pt sit>Stand and gait to chair 15 ft step pivot using FWW CGA- close SBA and slow descend to chair proper hand placement, cGA-SBA. Pt ok to return home with to assist him when medically cleared. Gait Assessment Gait Gait Assistance Required: Contact Guard Assist,1 Person Assist Distance (Feet) 110 Able to Maintain Weight Bearing Status Yes During Gait Assistive Devices Assistive Device Gait Belt,Front Wheeled Walker Orthotic/Prosthetic Devices or Brace: No Gait Deviations General Gait Pattern Antalgic,Decreased Stride Length,Decreased Feet Clearance,Step-to Gait Factors Limiting Gait Function Factors Limiting Gait Function Decreased Activity Tolerance, Decreased Strength,Limited Range of Motion,Pain Comments Gait Comments Cued for quad facilitation during stance phase, fair knee flexion during swing phase. stagger step patterning once in hallway, step to in room initially. Stair Climbing Assessment Evaluation Level of Assist On Stairs Contact Guard Assistance,1 Person Assistance Devices Stair Climbing Assistive Devices Front Wheel Walker Technique/Endurance Stair Climbing Direction Ascend and Descend Stair Climbing Technique Step to Step Number of Steps Climbed 3 Stair Climbing Set # Repetitions (reps) 5 Comments Stair Climbing Comments Step to patterning, cued x1 for SPC placement advance step . cued RLE quad facilitation during LLE advancement. Cue x1 for body positioning and hand placement on belt along with other UE on rail for self support for safety. IMproved each set stairs. PT-Balance Assessment Sitting Balance and Reactions Static Sitting Balance Ability Normal Dynamic Sitting Balance Ability Normal Standing Balance and Reactions Static Standing Balance Ability Good Dynamic Standing Balance Ability Fair Device Used FWW M5 PT-IP Objective Assessments Start: 06/02/21 16:54 Freq: NEEDED Status: Discharge Protocol: Document 06/02/21 15:25 AB (Rec: 06/02/21 17:05 AB [id number]) Orientation Orientation/Cognition Level of Alertness Alert Orientation Name,Place,Situation Language Function Ability No Deficits Noted Safety Awareness Decreased Safety Awareness Memory Description No Deficits Noted Gross Range of Motion Lower Extremity ROM Assessment Within Functional Limits Strength Lower Extremity Strength Hip 4/5 Knee 4-/5 Coordination Assessment Gross Coordination Gross Coordination WNL Sensation Assessment Sensation Sensation Description Numbness Comments Sensation Comments stated that his BLE are still numb Muscle Tone Muscle Tone WNL Yes M6 PT-IP Treatment Start: 06/02/21 16:54 Freq: NEEDED Status: Discharge Protocol: Document 06/03/21 10:08 SP (Rec: 06/03/21 16:04 SP [id number]) Physical Therapy Treatment Exercises Exercises Ankle Pumps,Quad Sets,Heel Slides,Short Arc Quads,Passive Knee Extension Hang,Seated Knee Flexion/Extension Knee ROM Measurement approx 90 deg AROM R knee Education Education Provided Precautions,Weight Bearing Status,Post-Op Packet,Safety Other Treatments Other Treatment Performed quad set stand, wt shift pre gait for R knee extension stability and during mid stance gait phase. M7 PT-IP Assessment and Plan Start: 06/02/21 16:54 Freq: NEEDED Status: Discharge Protocol: Document 06/03/21 10:08 SP (Rec: 06/03/21 16:04 SP [id number]) PT Summary Assessment and Plan Potential Rehabilitation Potential Good Status of Condition at Evaluation Evolving Summary Impairments Pain,ROM,Strength,Balance, Coordination,Sensation,Tone, Cognition,Bed Mobility, Transfers,Gait,Activity Tolerance Progress Towards Goals Progressing Toward Goals,Slow Progress due to Activity Tolerance Assessment Summary SBA bed mobility, CGA during transfers and gait w/ FWW, cued R quad facilitaition during gait improve ROM. stair mgt CGA SPC/RHR. Pt is ok to return home with assistance when medically cleared. Goals Bed Mobility Goal Independent Transfer Goal Independent,Front Wheeled Walker Gait Goal Independent,Front Wheel Walker Gait Distance 200 Other Goals up/down 7+7 steps R rail SBA Days to Meet Goals 5 Frequency of Treatment Frequency Of Treatment Twice a Day Treatment Plan Physical Therapy Treatment Plan Bed Mobility Training,Transfer Training,Gait Training, Therapeutic Exercise,Balance Retraining,Post Op Education, Discharge Planning,Hot or Cold Pack,Neuromuscular Re-ed, Coordination Retraining,Manual Therapy Other Recommendations and Next Treatment post op ex, ROM, gait w/ FWW Focus Weight Bearing Status Weight Bearing Status Weight Bear as Tolerated Allowed Weight Bearing Amount (enter % RLE WBAT or #) (%) Recommendations To Nursing Amount of Assist Needed 1 Person Assist Discharge Recommendations PT Discharge Recommendations Home with Assistance, Outpatient PT Transportation Needs at Discharge Private Vehicle
--- NOTE | 2021-06-03 11:47 | PC.NURSE ---
Patient A/O x 3, resting in bed this am and up with PT for caregiver training. VSS. Voiding. BT active x 4. Knee dressing has about a quarter and half dollar size amount of drainage, changed prior to discharge. Sx wound is approximated, no redness, streaking or abnormal warmth. DSG and JERARDO replaced. CMS intact bilaterally. Patient denies numbness or tingling. Patient tolerated dressing change. IV removed for discharge, belongings gathered. Patient denies items in safe or pharmacy. Discharge instructions given regarding f/u, wound care, s/s of infection, medication, pain control and activity. Patient and verbalized understanding deny further needs at this time. Discharged via wheel chair with RN assist.
== END 2021-06-03 11:45 | disposition home or self-care (01) ==
LOC: OR 08:14 → AC 08:15
PROVIDERS: PCP Family Medicine; Referring Provider Orthopaedic Surgery; Visit Provider Orthopaedic Surgery
PROC: 0SRC0JZ Replacement of Right Knee Joint with Synthetic Substitute, Open Approach (ICD-10-PCS; CPT 27447; principal; 2021-06-02 10:00)
DX: M17.11 Unilateral primary osteoarthritis, right knee (principal); Z95.1 Presence of aortocoronary bypass graft; I25.10 Atherosclerotic heart disease of native coronary artery without angina pectoris; I10 Essential (primary) hypertension
CPT/HCPCS: 27447; 36415; 64450; 73560; 85014; 85018; 97110; 97116; 97162; 97530; C1776; C1713; C9290; J0171; J0690; J2250; J2270; J3010

== ENCOUNTER 2022-01-24 10:15 | Outpatient (RCR) | payer MEDICARE, OTHER, SELFPAY ==
[2021-06-02 13:19] VITALS: BMI 25.9
== END 2022-01-24 12:15 ==
LOC: CAR 10:15
PROVIDERS: PCP Family Medicine; Referring Provider Family Medicine; Visit Provider Family Medicine
DX: Z95.1 Presence of aortocoronary bypass graft (principal)
CPT/HCPCS: 93798

== ENCOUNTER → 2023-03-21 10:52 | Outpatient (CLI) | payer MEDICARE, OTHER, SELFPAY ==
[2023-03-01 14:26] VITALS: BMI 25.9
[2023-03-21 11:53] LABS: Estimated Glomerular Filt Rate > 60 mL/min (>60)
[2023-03-21 12:23] LABS: Prostate Specific Antigen 1.03 ng/mL (0.10-4.00)
--- NOTE | 2023-03-21 12:30 | DI.CT.S_ITS ---
PROCEDURE: CT IVP A/P W/WO INDICATIONS: Hematuria TECHNIQUE: Optional 5 mm thick noncontrast images acquired from the diaphragm to the symphysis pubis. After the administration of intravenous contrast, 5 mm thick images acquired from the diaphragm to the symphysis pubis after a 10-minute delay. 2 mm thick coronal and sagittal reformats were then performed of the kidneys and ureters. For radiation dose reduction, the following was used: automated exposure control, adjustment of mA and/or kV according to patient size. COMPARISON: None. FINDINGS: Image quality: Diagnostic. Kidneys and Ureters: Markedly enlarged left kidney with the large cyst with no internal enhancement nor soft tissue components with thin núñez measuring at least 13 cm in size. Another right renal cyst without enhancement measures 5 cm. Largest cyst in the left kidney measures 4 cm Additional smaller cystic lesions are seen in both kidneys. None of the bilateral renal cysts show appreciable enhancement or soft tissue components Nonobstructive 2 mm stone is seen in the interpolar region of the right kidney. No hydronephrosis. No perinephric stranding No perinephric fat stranding. There is otherwise normal bilateral renal enhancement. Renal calyces appear normal in morphology when filled with contrast. Opacified portions of both ureters demonstrate normal caliber Bladder: Large fungating mass seen in the bladder lumen posteriorly measuring at least 5 cm showing enhancement on postcontrast images. OTHER: Lower chest: Unremarkable. Liver: No solid mass. Gallbladder: No radiopaque calculus seen Biliary ducts: No biliary dilation. Pancreas: Markedly atrophic Spleen: Size is within normal limits. Adrenal Glands: No adrenal nodules. Stomach and Bowel: Small hiatal hernia present. Normal colonic caliber, without significant wall thickening. Severe diverticulosis without evidence of diverticulitis. Peritoneum: No abnormal intraperitoneal fluid. No free air. Ventral Wall: No hernia. Abdominal Nodes: No retroperitoneal or mesenteric adenopathy by size criteria. Vessels: Aorta and inferior vena cava are normal in size. PELVIS: Pelvic Organs: Unremarkable. Pelvic Nodes: No enlarged lymph nodes. Miscellaneous: No inguinal hernias are seen. Bones: Ill-defined lytic lesions throughout the partially visualized femur pelvic bones, sacrum and lumbar spine. This could represent metastasis IMPRESSION: 1. 5 cm fungating mass projecting into the base of the bladder. This abuts the markedly enlarged prostate and may be continuous with it. That shows postcontrast enhancement. 2. Abnormally enlarged bilateral seminal vesicles measuring at least 3 cm bilaterally. This could represent tumor involvement 3. Ill-defined lytic osseous lesions especially the partially visualized femurs, iliac bones, sacrum and lumbar spine. Cannot exclude metastasis. 4. Nonobstructive 2 mm stone in the interpolar region of the right kidney. Bilateral renal cysts Dictated by: Jhoan Ojeda M.D. on 03/21/2023 at 16:11 Approved by: Jhoan Ojeda M.D. on 03/21/2023 at 16:32
== END ==
LOC: CT 10:53
PROVIDERS: Radiology Diagnostic Radiology; PCP Family Medicine; Referring Provider Specialist; Visit Provider Specialist
DX: N40.1 Benign prostatic hyperplasia with lower urinary tract symptoms (principal); R31.9 Hematuria, unspecified; N13.8 Other obstructive and reflux uropathy; N32.9 Bladder disorder, unspecified; M89.9 Disorder of bone, unspecified; N20.0 Calculus of kidney; N28.1 Cyst of kidney, acquired
CPT/HCPCS: 36415; 74178; 82565; 84153; Q9967

== ENCOUNTER → 2023-04-21 11:28 | Outpatient (CLI) | payer MEDICARE, OTHER, SELFPAY ==
[2023-03-01 14:26] VITALS: BMI 25.9
--- NOTE | 2023-04-21 | DI.MRI.S_ITS ---
PROCEDURE: MR PELVIC PROSTATE PROTOCOL INDICATIONS: Benign prostatic hyperplasia with lower urinary tract sympto TECHNIQUE: Coronal HASTE, axial T1 FSE with fat saturation, 3-plane nonbreath-hold T2 FSE. After the administration of contrast, dynamic axial, delayed axial and coronal VIBE or 2-D FLASH with fat saturation through the pelvis. Diffusion weighted imaging and ADC was performed. COMPARISON: None. FINDINGS: Image quality: Diffusion weighted and dynamic contrast enhanced images are diagnostic. Prostate: Gland size is 6.9 x 7.0 by 5.8 cm; ellipsoid gland volume is 146 mL. Morphology is that of nodular transition zone hypertrophy compressing peripheral zone. There are few areas in the posterior transition zone near the apex of the gland demonstrating slight increased diffusion signal and decreased ADC signal, however several of these are encapsulated suggesting BPH nodules. There is no suspicious PI-RADS four or five mass. Genitourinary system: Urinary bladder demonstrates diffusely thickened, under distended wall. Distal ureters are nondilated. There is high T1, and slightly lower T2 signal within the left seminal vesicles Bowel and peritoneum: Prominent sigmoid colon diverticulosis. Other visible bowel loops are normal. There is no free pelvic fluid. Nodes and vessels: No pelvic or inguinal adenopathy by size criteria. Iliac vessels are normal in caliber. Soft tissues: No inguinal hernias. Bones: Marrow demonstrates normal overall signal, without lesions to suggest metastases. IMPRESSION: No PI-RADS four or five prostate lesions in the enlarged gland. No pelvic lymphadenopathy by size criteria. No aggressive osseous abnormality. Dictated by: Lalita Lomax M.D. on 04/21/2023 at 15:30 Approved by: Lalita Lomax M.D. on 04/21/2023 at 15:45
== END ==
LOC: MRI 11:29
PROVIDERS: PCP Family Medicine; Referring Provider Specialist; Visit Provider Specialist
DX: N40.1 Benign prostatic hyperplasia with lower urinary tract symptoms (principal); N13.8 Other obstructive and reflux uropathy; N42.9 Disorder of prostate, unspecified
CPT/HCPCS: 72197; A9579

== ENCOUNTER → 2023-04-28 09:05 | Outpatient (CLI) | payer MEDICARE, OTHER, SELFPAY ==
[2023-03-01 14:26] VITALS: BMI 25.9
--- NOTE | 2023-04-28 09:30 | DI.NM.S_ITS ---
PROCEDURE: NM BONE SCAN WHOLE BODY RADIOPHARMACEUTICAL: 20.7 mCi Tc-99m MDP IV. 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 Anterior and posterior views were acquired from vertex to feet. Additional left and right oblique views of the pelvis were obtained. COMPARISON: [facility], MR, MR PELVIC PROSTATE PROTOCOL, 04/21/2023, 11:38. [facility], CT, CT IVP A/P W/WO, 03/21/2023, 12:07. FINDINGS: No lesions are identified in skull, clavicles, scapulae, ribs, bony pelvis, and visualized shafts of the long bones. Diffusely increased activity in sternum correlates with CT finding of sternotomy. There are foci of increased uptake in cervical, thoracic and lumbar spine most likely secondary to degenerative disc and facet disease; early metastasis to spine could be obscured by degenerative changes. There are foci of increased periarticular activity most pronounced shoulders and hips, compatible with degenerative/arthritic changes. Note is made of right knee arthroplasty. There is moderate dilated left renal calyes without central pelvis dilation. There is a large There is normal soft tissue uptake. Mildly distended urinary bladder which partially obscure pelvis. IMPRESSION: 1. No definitive scintigraphic findings to suggest osseous metastasis. 2. Dilated left renal calyces without dilation of central left renal pelvis. 3. Mildly distended urinary bladder. Dictated by: Rajat Donato M.D. on 04/28/2023 at 16:36 Approved by: Rajat Donato M.D. on 04/29/2023 at 8:16
== END ==
LOC: NUCM 09:05
PROVIDERS: PCP Family Medicine; Referring Provider Specialist; Visit Provider Specialist
DX: N28.1 Cyst of kidney, acquired (principal); N40.1 Benign prostatic hyperplasia with lower urinary tract symptoms; N13.8 Other obstructive and reflux uropathy; N32.89 Other specified disorders of bladder
CPT/HCPCS: 78306; A9503

== ENCOUNTER → 2024-02-16 10:04 | Outpatient (CLI) | payer MEDICARE, OTHER, SELFPAY ==
[2023-03-01 14:26] VITALS: BMI 25.9
--- NOTE | 2024-02-16 10:07 | DI.RAD.S_ITS ---
PROCEDURE: XR HIP W PEL IF DONE LT 2V INDICATIONS: L HIP PAIN TECHNIQUE: AP pelvis with lateral view(s) of the left hip(s). COMPARISON: None. FINDINGS: No acute fracture or dislocation. Mild-moderate bilateral hip osteoarthritis. Mild bilateral sacroiliac joint and lower lumbar osteoarthrosis. Mild pubic symphysis osteoarthritis. IMPRESSION: Mild-moderate bilateral hip osteoarthritis. Dictated by: Keon Menon M.D. on 02/16/2024 at 12:26 Approved by: Keon Menon M.D. on 02/16/2024 at 12:28
== END ==
PROVIDERS: PCP Family Medicine; Referring Provider Family Medicine; Visit Provider Family Medicine
DX: M16.0 Bilateral primary osteoarthritis of hip (principal); M25.552 Pain in left hip
CPT/HCPCS: 73502

== ENCOUNTER → 2024-03-21 14:13 | Outpatient (CLI) | payer MEDICARE, OTHER, SELFPAY ==
[2023-03-01 14:26] VITALS: BMI 25.9
--- NOTE | 2024-03-21 14:17 | EKG_ITS ---
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
[2024-03-21 15:20] LABS: Add Manual Diff / Slide Review NO; Basophils Absolute Auto 100 /uL (0-100); Basophils Percent Auto 1.2 % (0-2); Eosinophils Absolute Auto 200 /uL (0-450); Eosinophils Percent Auto 3.5 % (2-4); Hematocrit 43.8 % (41-53); Hemoglobin 14.7 g/dL (13.5-17.5); Lymphocytes Absolute Auto 1100 /uL (1100-4500); Lymphocytes Percent Auto 22.1 % (25-40); Mean Corpuscular HGB Conc 33.5 % (30-36); Mean Corpuscular Hemoglobin 31.1 PG (26-34); Mean Corpuscular Volume 92.7 fL (80-100); Monocytes Absolute Auto 500 /uL (0-900); Neutrophils Absolute Auto 3000 /uL (1500-7000); Neutrophils Percent Auto 63.2 % (50-75); Platelet Count 151 X10^3/uL (150-400); Red Blood Cell Count 4.72 X10^6/uL (4.5-5.9); Red Cell Distribution Width 14.7 % (11.6-14.8); White Blood Cell Count 4.8 X10^3/uL (4.5-11.0)
[2024-03-21 15:26] LABS: Hemoglobin A1C% w Est Avg Glu 5.4 % (4.0-6.0)
[2024-03-21 15:46] LABS: Albumin 4.7 g/dL (3.5-5.0); BUN Creatinine Ratio 23.2 (6-22); Blood Urea Nitrogen 23 mg/dL (9-20); Calcium 9.2 mg/dL (8.4-10.2); Carbon Dioxide 27 mmol/L (22-32); Chloride 103 mmol/L (98-107); Estimated Glomerular Filt Rate > 60 mL/min (>60); Glucose 100 mg/dL (80-110); HEMOLYSIS < 15 (0-50); Potassium 4.2 mmol/L (3.4-5.1); Sodium 139 mmol/L (137-145)
[2024-03-21 16:29] LABS: Vitamin D 25 Hydroxy (D3) 69.4 ng/mL (30.0-100.0)
== END ==
PROVIDERS: PCP Family Medicine; Referring Provider Orthopaedic Surgery; Visit Provider Orthopaedic Surgery
DX: Z01.818 Encounter for other preprocedural examination (principal); R73.9 Hyperglycemia, unspecified; E55.9 Vitamin D deficiency, unspecified; R77.0 Abnormality of albumin; Z01.812 Encounter for preprocedural laboratory examination
CPT/HCPCS: 36415; 80048; 82040; 82306; 83036; 84134; 85025; 93005; 93010

== ENCOUNTER 2024-05-30 10:22 | Emergency (ER) | payer MEDICARE, OTHER, SELFPAY ==
[2023-03-01 14:26] VITALS: BMI 25.9
[2024-05-30] VITALS (9 sets, daily range): BP systolic 104–125; BP diastolic 67–77; PULSE 72–117; RESP 12–19; TEMP 36.6–36.9; O2SAT 95–99; BMI 26.7
--- NOTE | 2024-05-30 10:37 | DI.RAD.S_ITS ---
PROCEDURE: XR CHEST 1V INDICATIONS: suspected sepsis TECHNIQUE: One view of the chest was acquired. COMPARISON: [facility], , XR CHEST 2V, 01/21/2021, 10:47. [facility], , CHEST 2 VIEW, 02/13/2017, 13:33. FINDINGS: Surgical changes and devices: Prior sternotomy and apparent prior CABG. Also, what appears to be a left atrial appendage closure device now overlies the left heart. Lungs and pleura: Lungs are difficult to accurately assess due to reduced inspiratory volume. No definite pneumonia is present but mild bibasilar atelectasis is suspected at each lower lobe.. No pleural effusions or pneumothorax. Mediastinum: Mediastinal contours appear normal. Heart size is normal. Bones and chest wall: No suspicious bony lesions. Overlying soft tissues appear unremarkable. IMPRESSION: Reduced inspiratory volume, mild bibasilar atelectasis but without identified pneumonia. Postsurgical changes as discussed. Dictated by: Pj Melchor M.D. on 05/30/2024 at 11:05 Approved by: Pj Melchor M.D. on 05/30/2024 at 11:07
--- NOTE | 2024-05-30 10:43 | EKG_ITS ---
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
[2024-05-30 11:00] LABS: Add Manual Diff / Slide Review NO; Basophils Absolute Auto 100 /uL (0-100); Basophils Percent Auto 1.2 % (0-2); Eosinophils Absolute Auto 100 /uL (0-450); Eosinophils Percent Auto 2.2 % (2-4); Hemoglobin 12.5 g/dL (13.5-17.5); Lymphocytes Absolute Auto 700 /uL (1100-4500); Mean Corpuscular HGB Conc 33.9 % (30-36); Mean Corpuscular Hemoglobin 31.5 PG (26-34); Mean Corpuscular Volume 93.1 fL (80-100); Monocytes Absolute Auto 700 /uL (0-900); Monocytes Percent Auto 10.7 % (3-14); Neutrophils Absolute Auto 5000 /uL (1500-7000); Neutrophils Percent Auto 74.9 % (50-75); Platelet Count 232 X10^3/uL (150-400); Red Blood Cell Count 3.97 X10^6/uL (4.5-5.9); Red Cell Distribution Width 12.7 % (11.6-14.8); White Blood Cell Count 6.7 X10^3/uL (4.5-11.0)
[2024-05-30 11:05] LABS: INR 1.1 (0.9-1.3); Prothrombin Time 12.2 SECONDS (9.4-12.5)
--- NOTE | 2024-05-30 11:05 | DI.CT.S_ITS ---
PROCEDURE: CT ANGIO CHEST PE PROTOCOL INDICATIONS: pe suspected TECHNIQUE: After the administration of intravenous contrast, 2 mm thick sections acquired from the pulmonary apices to the posterior costophrenic angles. 3-dimensional maximum intensity projection (MIP) coronal and sagittal reformats were then acquired through the thorax. For radiation dose reduction, the following was used: automated exposure control, adjustment of mA and/or kV according to patient size. COMPARISON: [facility], CT, CT CHEST WO CON, 01/04/2021, 12:41. FINDINGS: Image quality: Diagnostic. Pulmonary arteries: Pulmonary arteries are normal in size, and demonstrate no intraluminal filling defects to suggest central pulmonary embolism. Lower Neck: No enlarged lymph nodes. Thyroid: No thyroid nodules which require sonographic follow up, per consensus guidelines. Axillae: No enlarged lymph nodes. Chest Wall: Unremarkable. Bones: Unremarkable. Lungs and Pleura: No pneumothorax or pleural effusions. No consolidation or suspicious nodules. Heart: Heart size is enlarged. No pericardial effusion. Vascular calcifications and stents, with CABG. Atrial appendage clip. Thoracic Vessels: Ascending aortic aneurysm measuring 4.4 centimeter, stable from prior. Mediastinum and Becki: No enlarged lymph nodes. Esophagus: No wall thickening. No hiatal hernia. Upper Abdomen: Liver edge blunting. Renal cysts are present. IMPRESSION: No pulmonary embolus. Ascending aortic aneurysm measuring 4.4 centimeter. Findings are stable prior. Consider annual echocardiogram or chest CTA every other year. Dictated by: Anthony Grande M.D. on 05/30/2024 at 11:42 Approved by: Anthony Grande M.D. on 05/30/2024 at 11:49
[2024-05-30 11:07] LABS: PTT Partial Thromboplastin Tim 33 SECONDS (25.1-36.5)
--- NOTE | 2024-05-30 11:12 | ED.ARRPALP ---
HPI - Arrhythmia/Palpitations General Chief Complaint: Arrhythmia/Palpitations Stated Complaint: Low blood pressure, elevated heart rate, per Time Seen by Provider: 05/30/24 10:52 Source: patient Mode of arrival: Ambulatory History of Present Illness HPI narrative: This is an 83-year-old male with a history of atrial fibrillation status post ablation and not anticoagulated history of coronary artery disease status post bypass history of left total knee replacement on the [address] Montes. This morning he felt some palpitations and his noted that his blood pressure was in the 90s. Disease left knee by his report feels a bit warm he has not had fevers she is not having chest pain. He has been taking aspirin 81 mg twice a day for DVT prophylaxis. Reviewed previous labs in March had a normal creatinine. Related Data Home Medications Medication Instructions Recorded Confirmed metoprolol succinate 50 mg 100 mg PO BID 03/09/23 05/30/24 tablet,extended release 24 hr dofetilide 250 mcg capsule 250 mcg PO ONCE 05/11/23 05/30/24 Previous Rx's Medication Instructions Recorded aspirin 81 mg tablet,delayed 81 mg PO BID #60 tabs 06/03/21 release tamsulosin 0.4 mg capsule 0.4 mg PO BEDTIME #90 caps 04/13/23 finasteride 5 mg tablet 5 mg PO DAILY #90 tabs 11/08/23 Allergies Allergy/AdvReac Type Severity Reaction Status Date / Time amiodarone AdvReac Intermediate Cough, eye Verified 05/08/24 09:35 drainage, loss of hair lisinopril AdvReac Mild Cough Verified 05/08/24 09:35 Patient History Medical History Renal cyst, acquired BPH w urinary obs/LUTS Hematospermia NSVT (nonsustained ventricular tachycardia) Nonischemic cardiomyopathy Thoracic aortic aneurysm without rupture Sinus bradycardia Aortic valve disease Osteoarthritis CAD (coronary artery disease) BCC (basal cell carcinoma) HLD (hyperlipidemia) HTN (hypertension) Atrial fibrillation Inguinal hernia Cataract (lens) fragments in eye following cataract surgery, bilateral Surgical History History of surgical procedure (06/2012) H/O cardiac radiofrequency ablation Hx of tonsillectomy (1944) Hx of hernia repair Hx of bilateral cataract extraction 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) Family History Mother Cancer Social History marital status: number of children: 3 household members: spouse Smoking Status: Never smoker alcohol intake: former caffeine: Yes Type(s) of exercise: walking, bicycling and weight lifting frequency: 5-6 times per week duration: 45-60 minutes/day Smoking Status: Never smoker alcohol intake frequency: 0-2 drinks per day Exam Initial Vital Signs Initial Vital Signs: Vital Signs Temperature 97.9 F 05/30/24 10:39 Pulse Rate 117 H 05/30/24 10:39 Respiratory Rate 17 05/30/24 10:39 Blood Pressure 119/73 05/30/24 10:39 Pulse Oximetry 99 05/30/24 10:39 Oxygen Delivery Method Room Air 05/30/24 10:39 Const General: cooperative and No acute distress HENMT Head: normocephalic and atraumatic Eyes EOM: EOM intact bilaterally Neck Neck: supple and No JVD Chest Chest: normal inspection of the chest Resp Effort & Inspection: normal respiratory effort and able to speak in complete sentences Auscultation: clear to auscultation bilaterally Cardio Heart Sounds: no murmurs Other: Irregularly irregular and tachycardic Skin General: warm Neuro General: patient alert and patient oriented x3 Extrem Other: Left knee is swollen and slightly red not remarkably tender dressings are intact overall this looks like a postoperative knee. Left calf is without cords or focal tenderness Course Orders Ordered: ED Orders 05/30/24 10:37 XR chest 1V Stat EKG-12 Lead Stat RT Consult Eval and Treat NOW 05/30/24 10:45 BNP [NT-proBNP (BNP-Adult 18+)] Stat Complete Blood Count AUTO DIFF Stat Comprehensive Metabolic Panel Stat Lactate (Lactic Acid) Stat Lipase Stat PTT Partial Thromboplastin Jaxson Stat Procalcitonin Stat Prothrombin Time INR Stat Troponin & CK Cardiac Panel Stat 05/30/24 11:05 CT angio chest PE protocol Stat 05/30/24 11:10 Blood Culture Stat 05/30/24 12:26 EKG-12 Lead Stat Discontinued Medications Sodium Chloride (Normal Saline 0.9%) 1,000 mls @ 1,000 mls/hr IV BOLUS ONE Stop: 05/30/24 11:36 Last Admin: 05/30/24 12:22 Dose: Not Given Documented By: HAYDEN Ondansetron HCl (Ondansetron 4 Mg/2 Ml Inj) 4 mg IV NOW PRN PRN Reason: Nausea And Vomiting Ondansetron HCl (Ondansetron 4 Mg Odt) 4 mg SL NOW PRN PRN Reason: Nausea And Vomiting Vital Signs Vital signs: Vital Signs - 8 hr 05/30/24 10:52 05/30/24 10:53 05/30/24 10:53 Temperature Pulse Rate 102 H 96 H Respiratory Rate 14 18 Blood Pressure 125/77 Pulse Oximetry 98 Oxygen Delivery Method 05/30/24 11:00 05/30/24 11:00 05/30/24 11:25 Temperature Pulse Rate 99 H 78 Respiratory Rate 17 14 Blood Pressure 104/71 Pulse Oximetry 98 95 Oxygen Delivery Method 05/30/24 11:25 05/30/24 11:30 05/30/24 11:30 Temperature Pulse Rate 83 Respiratory Rate 17 Blood Pressure 120/73 113/71 Pulse Oximetry 99 Oxygen Delivery Method 05/30/24 12:09 05/30/24 12:09 05/30/24 12:30 Temperature Pulse Rate 78 75 Respiratory Rate 14 12 Blood Pressure 118/67 Pulse Oximetry 99 98 Oxygen Delivery Method Room Air 05/30/24 12:30 05/30/24 13:09 Temperature 98.5 F Pulse Rate 72 Respiratory Rate 19 Blood Pressure 106/68 106/67 Pulse Oximetry 97 Oxygen Delivery Method Room Air MDM - Arrhythmia/Palpitations Lab Data Lab results narrative: CBC with diff and CMP are unremarkable, INR is normal, troponin is normal, BNP is elevated although he does not appear to be in acute failure. 05/30/24 10:45 05/30/24 10:45 Labs: Lab Results 05/30/24 Range/Units 10:45 WBC 6.7 (4.5-11.0) X10^3/uL RBC 3.97 L (4.5-5.9) X10^6/uL Hgb 12.5 L (13.5-17.5) g/dL Hct 37.0 L (41-53) % MCV 93.1 (80-100) fL MCH 31.5 (26-34) PG MCHC 33.9 (30-36) % RDW 12.7 (11.6-14.8) % Plt Count 232 (150-400) X10^3/uL Neut % (Auto) 74.9 (50-75) % Lymph % (Auto) 11.0 L (25-40) % [place] % (Auto) 10.7 (3-14) % Eos % (Auto) 2.2 (2-4) % Baso % (Auto) 1.2 (0-2) % Neut # (Auto) 5000 (7644-7777) /uL Lymph # (Auto) 700 L (0584-6806) /uL [place] # (Auto) 700 (0-900) /uL Eos # (Auto) 100 (0-450) /uL Baso # (Auto) 100 (0-100) /uL PT 12.2 (9.4-12.5) SECONDS INR 1.1 (0.9-1.3) APTT 33 (25.1-36.5) SECONDS Sodium 134 L (137-145) mmol/L Potassium 4.8 (3.4-5.1) mmol/L Chloride 100 (98-107) mmol/L Carbon Dioxide 25 (22-32) mmol/L BUN 21 H (9-20) mg/dL Creatinine 0.96 (0.66-1.25) mg/dL Estimated GFR > 60 (>60) mL/min BUN/Creatinine Ratio 21.9 (6-22) Glucose 118 H (80-110) mg/dL Lactate 1.1 (0.7-2.1) mmol/L Calcium 8.9 (8.4-10.2) mg/dL Total Bilirubin 1.5 H (0.2-1.3) mg/dL AST 55 (17-59) IU/L ALT 32 (<50) IU/L Alkaline Phosphatase 49 (38-126) U/L Total Creatine Kinase 86 (55-170) U/L Troponin I < 0.012 (0.01-0.034) ng/mL NT-Pro-B Natriuret Pep 3200 H (<450) pg/mL Total Protein 7.3 (6.3-8.2) g/dL Albumin 4.3 (3.5-5.0) g/dL Globulin 3.0 (1.7-4.1) g/dL Albumin/Globulin Ratio 1.4 (1.0-2.8) Lipase 36 (23-300) U/L Procalcitonin 0.067 (<0.5) ng/mL Urine Dip Bedside Urine Glucose Negative Bedside Urine Bilirubin - Negative Bedside Urine Ketone - Negative Urine Specific [place] 1.010 Bedside Urine Occult Blood - Negative Bedside Urine pH 7.0 Bedside Urine Protein - Negative Bedside Urine Urobilinogen - Negative Bedside Urine Nitrite - Negative Bedside Urine Leukocytes - Negative Esterase Imaging Data Chest x-ray: My Impression: Independently reviewed chest x-ray, no acute findings CT scan - chest: My Impression: Independently reviewed, no acute finding Radiologist's Impresson: [address] [address] [address] Scan Report Signed Patient: Per Fortune MR#: [id number] : 1940 Acct:[id number] Age/Sex: 83 / M Date of Service: 05/30/24 Loc: ED Accession Number: [id number] Procedure: CT angio chest PE protocol Ordering Provider: Andrea Holley MD PROCEDURE: CT ANGIO CHEST PE PROTOCOL INDICATIONS: pe suspected TECHNIQUE: After the administration of intravenous contrast, 2 mm thick sections acquired from the pulmonary apices to the posterior costophrenic angles. 3-dimensional maximum intensity projection (MIP) coronal and sagittal reformats were then acquired through the thorax. For radiation dose reduction, the following was used: automated exposure control, adjustment of mA and/or kV according to patient size. COMPARISON: [facility], CT, CT CHEST WO CON, 01/04/2021, 12:41. FINDINGS: Image quality: Diagnostic. Pulmonary arteries: Pulmonary arteries are normal in size, and demonstrate no intraluminal filling defects to suggest central pulmonary embolism. Lower Neck: No enlarged lymph nodes. Thyroid: No thyroid nodules which require sonographic follow up, per consensus guidelines. Axillae: No enlarged lymph nodes. Chest Wall: Unremarkable. Bones: Unremarkable. Lungs and Pleura: No pneumothorax or pleural effusions. No consolidation or suspicious nodules. Heart: Heart size is enlarged. No pericardial effusion. Vascular calcifications and stents, with CABG. Atrial appendage clip. Thoracic Vessels: Ascending aortic aneurysm measuring 4.4 centimeter, stable from prior. Mediastinum and Becki: No enlarged lymph nodes. Esophagus: No wall thickening. No hiatal hernia. Upper Abdomen: Liver edge blunting. Renal cysts are present. IMPRESSION: No pulmonary embolus. Ascending aortic aneurysm measuring 4.4 centimeter. Findings are stable prior. Consider annual echocardiogram or chest CTA every other year. ECG Data Interpretation: ECG shows atrial fibrillation at [address] segment changes. Very poor baseline, this may be sinus rhythm with artifact. Repeat EKG shows sinus rhythm at 76 in the first-degree AV block no acute ST segment changes MDM Narrative Medical decision making narrative: 83-year-old male with a history of recent knee replacement surgery and atrial appendage clipping as well as a history of atrial fibrillation. He presents today with an episode of low blood pressure and palpitations concern for atrial fibrillation. EKG does appear that he had some transient atrial fibrillation although it is a very poor baseline. Workup was negative for pulmonary embolism. Presentation did not suggest ischemia. He had 1 hypertensive home blood pressure measurement, here he has been normotensive, does not appear to be infected. Patient is discharged home I recommend he follow up with his orthopedist in [employer] tactical readiness officer soon. Discharge Plan Departure Patient Disposition: Home Clinical Impression: Atrial fibrillation Qualifiers: Atrial fibrillation type: paroxysmal Qualified Code(s): I48.0 - Paroxysmal atrial fibrillation Activity Restrictions/Additional Instructions: It looks like he may have had a transient episode of atrial fibrillation today. You are looking better now and urine sinus rhythm. Also you had a left atrial appendage clip. I do not think that you need anticoagulation. Continue previous medications. 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 Make sure that you are getting adequate fluids. If your knee is having increased swelling follow up with your surgeon. Return to the emergency department for chest pain and shortness of breath fevers or other acute symptoms Prescriptions: No Action aspirin 81 mg Tablet,Delayed Release (Dr/Ec) 81 mg PO BID Qty: 60 0RF metoprolol succinate 50 mg tablet extended release 24 hr 100 mg PO BID dofetilide 250 mcg capsule 250 mcg PO ONCE finasteride 5 mg tablet 5 mg PO DAILY Qty: 90 3RF tamsulosin 0.4 mg capsule 0.4 mg PO BEDTIME Qty: 90 3RF Referrals: Elie Guillory MD [Primary Care Provider] - Stand Alone Forms: Patient Portal/API/Survey
[2024-05-30 11:20] LABS: Creatine Kinase 86 U/L (55-170)
[2024-05-30 11:21] LABS: Alanine Aminotransferase 32 IU/L (<50); Albumin 4.3 g/dL (3.5-5.0); Albumin Globulin Ratio 1.4 (1.0-2.8); Alkaline Phosphatase 49 U/L (38-126); Aspartate Aminotransferase 55 IU/L (17-59); BUN Creatinine Ratio 21.9 (6-22); Bilirubin Total 1.5 mg/dL (0.2-1.3); Blood Urea Nitrogen 21 mg/dL (9-20); Calcium 8.9 mg/dL (8.4-10.2); Carbon Dioxide 25 mmol/L (22-32); Chloride 100 mmol/L (98-107); Estimated Glomerular Filt Rate > 60 mL/min (>60); Glucose 118 mg/dL (80-110); Lipase 36 U/L (23-300); Sodium 134 mmol/L (137-145); Total Protein 7.3 g/dL (6.3-8.2)
[2024-05-30 11:23] LABS: Lactate (Lactic Acid) 1.1 mmol/L (0.7-2.1)
[2024-05-30 11:24] LABS: HEMOLYSIS 83 (0-50)
[2024-05-30 11:25] LABS: Potassium 4.8 mmol/L (3.4-5.1)
[2024-05-30 11:33] LABS: Troponin I < 0.012 ng/mL (0.01-0.034)
[2024-05-30 11:38] LABS: Procalcitonin 0.067 ng/mL (<0.5)
[2024-05-30 12:13] LABS: NT-proBNP (BNP-Adult 18+) 3200 pg/mL (<450)
--- NOTE | 2024-05-30 12:39 | EKG_ITS ---
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
--- NOTE | 2024-05-30 12:44 | PC.NURSE ---
Pt reports last night he felt weak and had the energy drained from his body. Pt states he had knee surgery about a week ago that he states was a new type of operation. Pt also has an extensive cardiac hx which included afib. Pt was treated with medicine for this. this morning pt suspected he might be in afib due to the low energy and came in. sinus rhythm on monitor. Pt states he has a mild pain in his left calf. No warmth, lumps, or redness noted to left calf. Pt reports he has not had any chills.
== END 2024-05-30 13:10 | disposition home or self-care (01) ==
PROVIDERS: Emergency Provider Emergency Medicine; PCP Family Medicine
DX: I48.0 Paroxysmal atrial fibrillation (principal); I44.0 Atrioventricular block, first degree
CPT/HCPCS: 36415; 71045; 71275; 80053; 81003; 82550; 83605; 83690; 83880; 84145; 84484; 85025; 85610; 85730; 87040; 93005; 93010; 99283; 99284; Q9967

== ENCOUNTER 2024-06-01 19:23 | Emergency (ER) | payer MEDICARE, OTHER, SELFPAY ==
[2023-03-01 14:26] VITALS: BMI 25.9
[2024-06-01] VITALS (9 sets, daily range): BP systolic 98–127; BP diastolic 74–91; PULSE 118–134; RESP 15–19; TEMP 36.8; O2SAT 93–98; BMI 27.4
--- NOTE | 2024-06-01 19:33 | DI.RAD.S_ITS ---
PROCEDURE: XR CHEST 1V INDICATIONS: chest pain TECHNIQUE: One view of the chest was acquired. COMPARISON: [facility], CR, XR CHEST 1V, 05/30/2024, 10:35. FINDINGS: Surgical changes and devices: Median sternotomy, leave atrial appendage clip and mediastinal surgical clips. Lungs and pleura: Lungs are clear. No pneumothorax. Left costophrenic angle blunting.. Mediastinum: Mediastinal contours appear normal. Heart size is normal. Bones and chest wall: No suspicious bony lesions. Overlying soft tissues appear unremarkable. IMPRESSION: Blunting of left costophrenic angle may represent trace pleural effusion.. No acute focal airspace consolidation. Approved by: Kathryn Washington M.D.,Ph.D. on 06/01/2024 at 20:14
--- NOTE | 2024-06-01 19:39 | EKG_ITS ---
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
--- NOTE | 2024-06-01 19:41 | ED_ITS ---
HPI - General Adult General Chief complaint: Arrhythmia/Palpitations Stated complaint: returning pt lower BP, rapid hr Time Seen by Provider: 06/01/24 19:41 History of Present Illness HPI narrative: 83-year-old gentleman with a history atrial fibrillation, post ablation, anticoagulated, coronary artery disease post bypass, total knee replacement in the left 23 of May, hypertension, hyperlipidemia presents noting that he began having rapid heart rate at about 330 this afternoon not associated with pain or dyspnea. He also notes that he is having slight pain in the posterior thigh and posterior calf in the leg with the recent knee replacement. He does have quite a bit of lower extremity/ankle edema isn't sure if this is expected postop edema or worse. He did talk to his appeals manager, Dr. Vogt earlier this afternoon who recommended an additional dose of metoprolol which he took afternoon. Patient is also on dofetilide Related Data Home Medications Medication Instructions Recorded Confirmed metoprolol succinate 50 mg 100 mg PO BID 03/09/23 05/30/24 tablet,extended release 24 hr dofetilide 250 mcg capsule 250 mcg PO ONCE 05/11/23 05/30/24 Previous Rx's Medication Instructions Recorded aspirin 81 mg tablet,delayed 81 mg PO BID #60 tabs 06/03/21 release tamsulosin 0.4 mg capsule 0.4 mg PO BEDTIME #90 caps 04/13/23 finasteride 5 mg tablet 5 mg PO DAILY #90 tabs 11/08/23 Allergies Allergy/AdvReac Type Severity Reaction Status Date / Time amiodarone AdvReac Intermediate Cough, eye Verified 05/08/24 09:35 drainage, loss of hair lisinopril AdvReac Mild Cough Verified 05/08/24 09:35 Review of Systems Review of Systems Narrative: Pertinent positive and negative findings as per HPI Patient History Medical History Renal cyst, acquired BPH w urinary obs/LUTS Hematospermia NSVT (nonsustained ventricular tachycardia) Nonischemic cardiomyopathy Thoracic aortic aneurysm without rupture Sinus bradycardia Aortic valve disease Osteoarthritis CAD (coronary artery disease) BCC (basal cell carcinoma) HLD (hyperlipidemia) HTN (hypertension) Atrial fibrillation Inguinal hernia Cataract (lens) fragments in eye following cataract surgery, bilateral Surgical History History of surgical procedure (06/2012) H/O cardiac radiofrequency ablation Hx of tonsillectomy (1944) Hx of hernia repair Hx of bilateral cataract extraction 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) Family History Mother Cancer Social History marital status: number of children: 3 household members: spouse Smoking Status: Never smoker alcohol intake: former caffeine: Yes Type(s) of exercise: walking, bicycling and weight lifting frequency: 5-6 times per week duration: 45-60 minutes/day Smoking Status: Never smoker alcohol intake frequency: 0-2 drinks per day Exam Initial Vital Signs Initial Vital Signs: Vital Signs Temperature 98.3 F 06/01/24 19:35 Pulse Rate 133 H 06/01/24 19:35 Respiratory Rate 16 06/01/24 19:35 Blood Pressure 117/84 06/01/24 19:35 Pulse Oximetry 97 06/01/24 19:35 Oxygen Delivery Method Room Air 06/01/24 19:35 General: Healthy appearing, in no acute distress. Able to give a complete and coherent history. Well-nourished well-developed HEENT: Moist mucous membranes, normal sclera with reactive pupils, Neck: No JVD, supple Respiratory: Lungs are clear to auscultation, no wheezing no rales no rhonchi. Full and symmetrical air movement Cardiac: Irregular, I do not appreciate murmurs Abdomen: Soft, nontender, no rebound or guarding, no flank pain Neurologic: Grossly neurologically intact inability to move all extremities Extremities: Left lower extremity with knee replacement surgical site dressing still in place. Area around the dressing appears entirely appropriate. He has swelling throughout the entire leg with appropriate resolving bruising in the upper thigh. Tenderness in the mid calf, tenderness in the posterior thigh. Psych: Cooperative, appropriate insight and affect Course Orders Ordered: ED Orders 06/01/24 19:33 XR chest 1V Stat EKG-12 Lead Stat 06/01/24 19:50 Complete Blood Count AUTO DIFF Stat Comprehensive Metabolic Panel Stat Lipase Stat Magnesium Stat NT-proBNP (BNP-Adult 18+) Stat PTT Partial Thromboplastin Jaxson Stat Prothrombin Time INR Stat Troponin & CK Cardiac Panel Stat 06/01/24 19:53 US periph venous low extrem lt Stat 06/02/24 02:02 EKG-12 Lead Stat Discontinued Medications Furosemide (Furosemide 40 Mg/4 Ml Vial) 40 mg IV NOW ONE Stop: 06/01/24 22:11 Last Admin: 06/01/24 22:17 Dose: 40 mg Documented By: JORGE Metoprolol Tartrate (Metoprolol Tartrate 5 Mg/5 Ml Inj) 5 mg IV NOW ONE Stop: 06/01/24 22:11 Last Admin: 06/01/24 22:41 Dose: 5 mg Documented By: JORGE Propofol (Propofol 200 Mg/20 Ml Vial) 180 mg 2 mg/kg (180 mg) IV NOW ONE Stop: 06/02/24 00:56 Last Admin: 06/02/24 01:44 Dose: 40 mg Documented By: SELENE Vital Signs Vital signs: Vital Signs - 8 hr 06/01/24 19:35 06/01/24 20:15 06/01/24 20:30 Temperature 98.3 F Pulse Rate 133 H 134 H Respiratory Rate 16 19 Blood Pressure 117/84 112/75 Pulse Oximetry 97 97 Oxygen Delivery Method Room Air 06/01/24 20:30 06/01/24 21:00 06/01/24 21:00 Temperature Pulse Rate 134 H 134 H Respiratory Rate 15 18 Blood Pressure 127/86 Pulse Oximetry 96 93 Oxygen Delivery Method 06/01/24 21:30 06/01/24 21:30 06/01/24 22:00 Temperature Pulse Rate 134 H Respiratory Rate 15 Blood Pressure 119/91 H 123/81 Pulse Oximetry 97 Oxygen Delivery Method 06/01/24 22:30 06/01/24 22:30 06/01/24 23:00 Temperature Pulse Rate 118 H 127 H Respiratory Rate 15 16 Blood Pressure 121/80 Pulse Oximetry 97 98 Oxygen Delivery Method 06/01/24 23:00 06/01/24 23:30 06/01/24 23:30 Temperature Pulse Rate 121 H Respiratory Rate 16 Blood Pressure 126/86 98/74 Pulse Oximetry 96 Oxygen Delivery Method 06/02/24 00:00 06/02/24 00:00 06/02/24 00:30 Temperature Pulse Rate 126 H 120 H Respiratory Rate 16 16 Blood Pressure 125/80 Pulse Oximetry 98 94 Oxygen Delivery Method 06/02/24 00:30 06/02/24 01:00 06/02/24 01:00 Temperature Pulse Rate 125 H Respiratory Rate 15 Blood Pressure 109/76 110/71 Pulse Oximetry 95 Oxygen Delivery Method 06/02/24 01:30 06/02/24 01:30 06/02/24 01:40 Temperature Pulse Rate 136 H 126 H Respiratory Rate 17 21 Blood Pressure 107/86 Pulse Oximetry 96 95 Oxygen Delivery Method Room Air 06/02/24 01:40 06/02/24 01:46 06/02/24 01:46 Temperature Pulse Rate 86 Respiratory Rate 21 Blood Pressure 122/89 125/68 Pulse Oximetry 97 Oxygen Delivery Method Room Air 06/02/24 01:50 06/02/24 01:50 06/02/24 01:55 Temperature Pulse Rate 85 Respiratory Rate 16 Blood Pressure 116/60 102/58 L Pulse Oximetry 96 Oxygen Delivery Method 06/02/24 01:55 06/02/24 02:00 06/02/24 02:00 Temperature Pulse Rate 85 75 Respiratory Rate 17 17 Blood Pressure 100/60 Pulse Oximetry 96 96 Oxygen Delivery Method Room Air Room Air 06/02/24 02:05 06/02/24 02:05 06/02/24 02:10 Temperature Pulse Rate 80 85 Respiratory Rate 24 20 Blood Pressure 111/67 Pulse Oximetry 96 97 Oxygen Delivery Method 06/02/24 02:10 06/02/24 02:15 06/02/24 02:15 Temperature Pulse Rate 74 Respiratory Rate 17 Blood Pressure 111/70 109/70 Pulse Oximetry 95 Oxygen Delivery Method Room Air Medical Decision Making Lab Data 06/01/24 19:50 06/01/24 19:50 Labs: Lab Results 06/01/24 Range/Units 19:50 WBC 8.0 (4.5-11.0) X10^3/uL RBC 3.91 L (4.5-5.9) X10^6/uL Hgb 12.3 L (13.5-17.5) g/dL Hct 36.4 L (41-53) % MCV 93.1 (80-100) fL MCH 31.5 (26-34) PG MCHC 33.8 (30-36) % RDW 13.1 (11.6-14.8) % Plt Count 256 (150-400) X10^3/uL Neut % (Auto) 70.5 (50-75) % Lymph % (Auto) 14.0 L (25-40) % Tyler % (Auto) 12.0 (3-14) % Eos % (Auto) 2.8 (2-4) % Baso % (Auto) 0.7 (0-2) % Neut # (Auto) 5600 (1514-9769) /uL Lymph # (Auto) 1100 (6947-7476) /uL Tyler # (Auto) 1000 H (0-900) /uL Eos # (Auto) 200 (0-450) /uL Baso # (Auto) 100 (0-100) /uL PT 12.5 (9.4-12.5) SECONDS INR 1.1 (0.9-1.3) APTT 32 (25.1-36.5) SECONDS Sodium 134 L (137-145) mmol/L Potassium 4.3 (3.4-5.1) mmol/L Chloride 98 (98-107) mmol/L Carbon Dioxide 26 (22-32) mmol/L BUN 27 H (9-20) mg/dL Creatinine 1.12 (0.66-1.25) mg/dL Estimated GFR > 60 (>60) mL/min BUN/Creatinine Ratio 24.1 H (6-22) Glucose 129 H (80-110) mg/dL Calcium 9.0 (8.4-10.2) mg/dL Magnesium 2.0 (1.6-2.3) mg/dL Total Bilirubin 1.1 (0.2-1.3) mg/dL AST 38 (17-59) IU/L ALT 30 (<50) IU/L Alkaline Phosphatase 64 (38-126) U/L Total Creatine Kinase 65 (55-170) U/L Troponin I < 0.012 (0.01-0.034) ng/mL NT-Pro-B Natriuret Pep 3470 H (<450) pg/mL Total Protein 7.2 (6.3-8.2) g/dL Albumin 4.1 (3.5-5.0) g/dL Globulin 3.1 (1.7-4.1) g/dL Albumin/Globulin Ratio 1.3 (1.0-2.8) Lipase 52 (23-300) U/L MDM Narrative Medical decision making narrative: CC: Recurrent atrial fibrillation at 3:30 this afternoon, concern for postop DVT after knee replacement left side Complicating co-morbidities: Recurrent atrial fibrillation last cardiac intervention was about 3 years ago. He is on metoprolol and dofetilide for AFib control and aspirin for stroke prevention. Left knee replacement on the Data collected from: patient, Medical records reviewed: Surgical record as well as ER record from the with similar complaints and workup done Differential considered: DVT, PE, recurrent atrial fibrillation, acute coronary syndrome, congestive heart failure Exam documented above, pertinent findings include: Aside from the left lower extremity is exam is remarkably benign. Heart rate is rapid, no secondary signs of congestive heart failure. Left lower extremity appears appropriate for day 9 postop knee replacement Lab Test results independently reviewed as above. Pertinent findings: CBC shows no leukocytosis, chronic anemia Chemistries are reassuring, electrolytes are within normal limits, Troponin is undetectable Magnesium is 2 BNP is slightly elevated at 3470, this is a slight increase from 48 hours ago Lipase is normal Independently reviewed EKG: Atrial fibrillation at a rate of 128. Nonspecific STT wave changes without acute ischemia Imaging studies independently reviewed: Chest x-ray is unremarkable Ultrasound of the left lower extremity does not show DVT Treatments: IV metoprolol, IV furosemide Cardioversion Discussion: 83-year-old gentleman post left knee replacement 10 days ago, history of recurrent atrial fibrillation none since his cardiac surgery 3 years ago currently on dofetilide. On 2 aspirin daily rather than further anticoagulation due to complications with anticoagulation in the past. Concerned with heart rate change to 130 at about 330 this afternoon. Spoke with his appeals manager who recommended further evaluation in the emergency department. Concern was for DVT/PE. No evidence of either based on ultrasound and further clinical exam. Patient was cardioverted back to sinus rhythm with a single 200 joule shock. He tolerated the procedure well. Prior to cardioversion he was given 40 mg of Lasix due to a minimally elevated BNP and I did attempt to lower his heart rate enough so that he could self convert with a dose of IV metoprolol, that was ineffective. After patient is recovered from his propofol sedation, reassurance is given, recommended follow up with his appeals manager. Asked him to continue with all of his usual medications in the morning. We again discussed anticoagulation, based on prior discussions and risk we will continue with aspirin only at this time. There was no indication for additional workup or hospitalization and he is safe for discharge Discharge Plan Departure Patient Disposition: Home Clinical Impression: Atrial fibrillation with RVR, Encounter for cardioversion procedure, Postoperative edema Instructions: DI for Atrial Fibrillation, DI for Moderate Sedation Activity Restrictions/Additional Instructions: Thank you for coming in today The ultrasound of your leg shows appropriate healing, you do have expected amounts of hematomas but no blood clots deeper in your leg and no reason for further anticoagulation. You converted to atrial fibrillation at 3:30. this afternoon. Your blood work showed slightly elevated BNP and you were given a dose of Lasix for diuresis in the emergency department. You do not need to continue this at home. I did give you a dose of IV metoprolol in hopes that blowing your heart rate would allow you to spontaneously convert. Unfortunately, your heart did not convert and we did use electricity to cardiovert you. With propofol sedation, a single 200 joule shock of electricity, you cardioverted back to sinus rhythm. Please continue all of your usual medications including 2 aspirin. A note will be sent to your appeals manager but I would recommend follow up phone call on Monday to let them know that you are in the emergency department, you were cardioverted and that you are still on 2 aspirin rather than any further anticoagulation to see if they continue to support that decision. If you find that you are getting worse or develop any new symptoms, please feel free to return to the emergency department for further evaluation. It was wonderful to share some memories of [place] with you. Such a small world, a delight to run into you this evening. Prescriptions: No Action aspirin 81 mg Tablet,Delayed Release (Dr/Ec) 81 mg PO BID Qty: 60 0RF metoprolol succinate 50 mg tablet extended release 24 hr 100 mg PO BID dofetilide 250 mcg capsule 250 mcg PO ONCE finasteride 5 mg tablet 5 mg PO DAILY Qty: 90 3RF tamsulosin 0.4 mg capsule 0.4 mg PO BEDTIME Qty: 90 3RF Referrals: Elie Guillory MD [Primary Care Provider] - Stand Alone Forms: Patient Portal/API/Survey
--- NOTE | 2024-06-01 19:53 | DI.US.S_ITS ---
PROCEDURE: US PERIPH VENOUS LOW EXTREM LT INDICATIONS: edema post op, recurent A fib, increased calf pain TECHNIQUE: Real-time imaging, as well as color and pulse Doppler interrogation, were performed of the lower extremity deep veins from the inguinal ligament to the popliteal fossa, with documentation of the visualized calf veins. COMPARISON: None. FINDINGS: The common femoral, femoral, popliteal, and the visualized calf veins are normally compressible, and free of intraluminal thrombus. Color and pulse Doppler demonstrate normal phasic intraluminal flow. There is normal augmentation response to distal compression maneuver. Small fluid collection superior anterior medial knee measuring 9.5 x 4.2 x 1.6 cm. Herrera's cyst measuring 5.6 cm. IMPRESSION: 1. No left lower extremity DVT. 2. Fluid collection superior to the knee measuring 9.5 cm. This could represent a joint effusion or hematoma. 3. Herrera's cyst measuring 5.6 cm. Dictated by: Rio Selby M.D. on 06/01/2024 at 23:09 Approved by: Rio Selby M.D. on 06/01/2024 at 23:12
[2024-06-01 19:57] LABS: Add Manual Diff / Slide Review NO; Basophils Absolute Auto 100 /uL (0-100); Basophils Percent Auto 0.7 % (0-2); Eosinophils Absolute Auto 200 /uL (0-450); Eosinophils Percent Auto 2.8 % (2-4); Hematocrit 36.4 % (41-53); Hemoglobin 12.3 g/dL (13.5-17.5); Lymphocytes Absolute Auto 1100 /uL (1100-4500); Mean Corpuscular HGB Conc 33.8 % (30-36); Mean Corpuscular Hemoglobin 31.5 PG (26-34); Mean Corpuscular Volume 93.1 fL (80-100); Monocytes Absolute Auto 1000 /uL (0-900); Neutrophils Absolute Auto 5600 /uL (1500-7000); Neutrophils Percent Auto 70.5 % (50-75); Platelet Count 256 X10^3/uL (150-400); Red Blood Cell Count 3.91 X10^6/uL (4.5-5.9); Red Cell Distribution Width 13.1 % (11.6-14.8)
[2024-06-01 20:04] LABS: INR 1.1 (0.9-1.3); Prothrombin Time 12.5 SECONDS (9.4-12.5)
[2024-06-01 20:07] LABS: PTT Partial Thromboplastin Tim 32 SECONDS (25.1-36.5)
[2024-06-01 20:09] LABS: Alanine Aminotransferase 30 IU/L (<50); Albumin 4.1 g/dL (3.5-5.0); Albumin Globulin Ratio 1.3 (1.0-2.8); Alkaline Phosphatase 64 U/L (38-126); Aspartate Aminotransferase 38 IU/L (17-59); BUN Creatinine Ratio 24.1 (6-22); Bilirubin Total 1.1 mg/dL (0.2-1.3); Blood Urea Nitrogen 27 mg/dL (9-20); Carbon Dioxide 26 mmol/L (22-32); Chloride 98 mmol/L (98-107); Creatine Kinase 65 U/L (55-170); Estimated Glomerular Filt Rate > 60 mL/min (>60); Globulin 3.1 g/dL (1.7-4.1); Glucose 129 mg/dL (80-110); HEMOLYSIS < 15 (0-50); Lipase 52 U/L (23-300); Potassium 4.3 mmol/L (3.4-5.1); Sodium 134 mmol/L (137-145); Total Protein 7.2 g/dL (6.3-8.2)
[2024-06-01 20:20] LABS: NT-proBNP (BNP-Adult 18+) 3470 pg/mL (<450); Troponin I < 0.012 ng/mL (0.01-0.034)
[2024-06-01] MEDS: FUROSEMIDE 40 MG/4 ML VIAL IV (22:17)
[2024-06-01] MEDS: METOPROLOL TARTRATE 5 MG/5 ML INJ IV (22:41)
[2024-06-02] VITALS (12 sets, daily range): BP systolic 100–125; BP diastolic 58–89; PULSE 74–136; RESP 15–24; O2SAT 94–98
[2024-06-02] MEDS: propofoL 200 MG/20 ML VIAL 180 MG IV (01:44)
== END 2024-06-02 02:45 | disposition home or self-care (01) ==
PROVIDERS: Emergency Provider Emergency Medicine; PCP Family Medicine
DX: I48.91 Unspecified atrial fibrillation (principal); R60.0 Localized edema; M79.605 Pain in left leg; Z96.652 Presence of left artificial knee joint; Z79.01 Long term (current) use of anticoagulants
CPT/HCPCS: 36415; 71045; 80053; 82550; 83690; 83735; 83880; 84484; 85025; 85610; 85730; 92960; 93005; 93010; 93971; 96374; 96375; 99285; J1940; J2704

== ENCOUNTER 2024-06-03 10:33 | Emergency (ER) | payer MEDICARE, OTHER, SELFPAY ==
[2023-03-01 14:26] VITALS: BMI 25.9
--- NOTE | 2024-06-02 02:05 | EKG_ITS ---
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
[2024-06-03] VITALS (68 sets, daily range): BP systolic 82–156; BP diastolic 58–85; PULSE 107–137; RESP 11–26; TEMP 36.7; O2SAT 94–99; BMI 27.4
--- NOTE | 2024-06-03 10:35 | DI.RAD.S_ITS ---
PROCEDURE: XR CHEST 1V INDICATIONS: chest pain TECHNIQUE: One view of the chest was acquired. COMPARISON: [facility], CR, XR CHEST 1V, 06/01/2024, 19:40. [facility], CR, XR CHEST 1V, 05/30/2024, 10:35. FINDINGS: Surgical changes and devices: Sternotomy. Lungs and pleura: Lungs are clear. No pleural effusions or pneumothorax. Mediastinum: Mediastinal contours appear normal. Heart size is normal. Bones and chest wall: No suspicious bony lesions. Overlying soft tissues appear unremarkable. IMPRESSION: No acute cardiopulmonary abnormality is seen. Dictated by: Anthony Grande M.D. on 06/03/2024 at 10:59 Approved by: Anthony Grande M.D. on 06/03/2024 at 10:59
--- NOTE | 2024-06-03 10:35 | EKG_ITS ---
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
[2024-06-03 11:04] LABS: Add Manual Diff / Slide Review NO; Basophils Absolute Auto 100 /uL (0-100); Basophils Percent Auto 0.9 % (0-2); Eosinophils Absolute Auto 200 /uL (0-450); Eosinophils Percent Auto 1.9 % (2-4); Hematocrit 36.2 % (41-53); Hemoglobin 12.3 g/dL (13.5-17.5); Lymphocytes Absolute Auto 700 /uL (1100-4500); Lymphocytes Percent Auto 8.2 % (25-40); Mean Corpuscular Hemoglobin 31.6 PG (26-34); Mean Corpuscular Volume 92.9 fL (80-100); Monocytes Absolute Auto 800 /uL (0-900); Monocytes Percent Auto 9.7 % (3-14); Neutrophils Absolute Auto 6600 /uL (1500-7000); Neutrophils Percent Auto 79.3 % (50-75); Platelet Count 283 X10^3/uL (150-400); White Blood Cell Count 8.3 X10^3/uL (4.5-11.0)
[2024-06-03 11:09] LABS: PTT Partial Thromboplastin Tim 30 SECONDS (25.1-36.5)
[2024-06-03 11:12] LABS: Alanine Aminotransferase 32 IU/L (<50); Albumin 4.3 g/dL (3.5-5.0); Albumin Globulin Ratio 1.4 (1.0-2.8); Alkaline Phosphatase 65 U/L (38-126); Aspartate Aminotransferase 41 IU/L (17-59); BUN Creatinine Ratio 24.1 (6-22); Bilirubin Total 1.3 mg/dL (0.2-1.3); Blood Urea Nitrogen 26 mg/dL (9-20); Calcium 9.1 mg/dL (8.4-10.2); Carbon Dioxide 26 mmol/L (22-32); Chloride 101 mmol/L (98-107); Creatine Kinase 89 U/L (55-170); Estimated Glomerular Filt Rate > 60 mL/min (>60); Glucose 122 mg/dL (80-110); HEMOLYSIS < 15 (0-50); Lipase 63 U/L (23-300); Magnesium 2.1 mg/dL (1.6-2.3); Potassium 4.5 mmol/L (3.4-5.1); Sodium 135 mmol/L (137-145); Total Protein 7.3 g/dL (6.3-8.2)
[2024-06-03 11:13] LABS: INR 1.2 (0.9-1.3); Prothrombin Time 13.1 SECONDS (9.4-12.5)
[2024-06-03 11:24] LABS: NT-proBNP (BNP-Adult 18+) 1240 pg/mL (<450); Troponin I < 0.012 ng/mL (0.01-0.034)
[2024-06-03] MEDS: SODIUM CHLORIDE 0.9% 1,000 ML 1000 ML IV (11:36)
--- NOTE | 2024-06-03 11:40 | ED_ITS ---
HPI - Arrhythmia/Palpitations General Chief Complaint: Arrhythmia/Palpitations Stated Complaint: AFIB Time Seen by Provider: 06/03/24 11:28 Source: patient, RN notes reviewed and old records reviewed Mode of arrival: Wheelchair Limitations: no limitations History of Present Illness HPI narrative: 83-year-old male history of atrial fibrillation, prior remote ablation followed by three-vessel CABG and appendage clip patient normally only takes aspirin daily because he had significant epistaxis and bleeding stronger anticoagulants. Patient states he had his knee replaced recently and today was following up for dressing change. He felt sort of weak or sort of ?lost power? but was able to walk around and at the office they noted he was in atrial fibrillation. He was stopped by the cardiology office he has not appointment tomorrow but they encouraged him to come here. Patient was here just this last Monday was cardioverted, he was here was in atrial fibrillation but self converted without interventions. Patient states other than feeling a little bit weak he does not really have any other symptoms denies any chest pain or shortness of breath, no nausea or vomiting, no syncope. No new swelling of his extremities. He states he has some persistent swelling in his extremity status post knee surgery. He states that is improving. He did have ultrasound of his lower extremity that was negative for DVT on the as well as a CT angio on the that was negative for pulmonary embolism. Patient is on 100 mg metoprolol b.i.d., Tikosyn 250 mcg b.i.d., atorvastatin, atorvastatin, Flomax and finasteride. He normally takes aspirin 81 mg daily but was increased to 81 mg b.i.d. for his knee replacement. Patient sees Dr. Vogt for his cardiology care. He was accompanied by his . Related Data Home Medications Medication Instructions Recorded Confirmed metoprolol succinate 50 mg 100 mg PO BID 03/09/23 05/30/24 tablet,extended release 24 hr dofetilide 250 mcg capsule 250 mcg PO ONCE 05/11/23 05/30/24 Previous Rx's Medication Instructions Recorded aspirin 81 mg tablet,delayed 81 mg PO BID #60 tabs 06/03/21 release tamsulosin 0.4 mg capsule 0.4 mg PO BEDTIME #90 caps 04/13/23 finasteride 5 mg tablet 5 mg PO DAILY #90 tabs 11/08/23 Allergies Allergy/AdvReac Type Severity Reaction Status Date / Time amiodarone AdvReac Intermediate Cough, eye Verified 05/08/24 09:35 drainage, loss of hair lisinopril AdvReac Mild Cough Verified 05/08/24 09:35 Review of Systems Review of Systems ROS Unobtainable: All systems reviewed & are unremarkable except as noted in HPI and below Patient History Medical History Renal cyst, acquired BPH w urinary obs/LUTS Hematospermia NSVT (nonsustained ventricular tachycardia) Nonischemic cardiomyopathy Thoracic aortic aneurysm without rupture Sinus bradycardia Aortic valve disease Osteoarthritis CAD (coronary artery disease) BCC (basal cell carcinoma) HLD (hyperlipidemia) HTN (hypertension) Atrial fibrillation Inguinal hernia Cataract (lens) fragments in eye following cataract surgery, bilateral Surgical History History of surgical procedure (06/2012) H/O cardiac radiofrequency ablation Hx of tonsillectomy (1944) Hx of hernia repair Hx of bilateral cataract extraction 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) Family History Mother Cancer Social History marital status: number of children: 3 household members: spouse Smoking Status: Never smoker alcohol intake: former caffeine: Yes Type(s) of exercise: walking, bicycling and weight lifting frequency: 5-6 times per week duration: 45-60 minutes/day Smoking Status: Never smoker alcohol intake frequency: 0-2 drinks per day Exam Narrative Exam Narrative: GENERAL: Alert and oriented x three, male in mild distress HEENT: Head normocephalic, atraumatic, EOMI, pupils reactive, face symmetric, moist mucous membranes NECK: Supple, full range of motion CARDIOVASCULAR: Irregularly irregular rate and rhythm without murmurs, rubs or gallops. No JVD. Some mild edema in his lower extremity left greater than right. RESPIRATORY: Breath sounds equal bilaterally, no wheezes rales or rhonchi. No tachypnea or accessory muscle use. ABDOMEN: Soft, nontender. Normoactive bowel sounds all 4 quadrants. No guarding or rebound, rigidity, no mass : No CVA tenderness EXTREMITIES: Normal range of motion, no clubbing or edema. Neurovascularly intact NEUROLOGICAL: Cranial nerves II through XII grossly intact. Moving all extremities SKIN: Warm, dry, no petechiae, no rashes or lesions. Initial Vital Signs Initial Vital Signs: Vital Signs Pulse Rate 121 H 06/03/24 10:40 Blood Pressure 108/71 06/03/24 10:40 Pulse Oximetry 97 06/03/24 10:40 Course Orders Ordered: ED Orders 06/03/24 10:35 XR chest 1V Stat EKG-12 Lead Stat 06/03/24 10:50 Complete Blood Count AUTO DIFF Stat Comprehensive Metabolic Panel Stat Lipase Stat Magnesium Stat NT-proBNP (BNP-Adult 18+) Stat PTT Partial Thromboplastin Jaxson Stat Prothrombin Time INR Stat Troponin & CK Cardiac Panel Stat Discontinued Medications Aspirin (Aspirin 81 Mg Chew Tab) 324 mg PO NOW ONE Stop: 06/03/24 10:36 Last Admin: 06/03/24 11:11 Dose: Not Given Documented By: RB Sodium Chloride (Normal Saline 0.9%) 1,000 mls @ 1,000 mls/hr IV BOLUS ONE Stop: 06/03/24 12:27 Last Infusion: 06/03/24 12:36 Dose: Infused Documented By: Admin: 06/03/24 11:36 Dose: 1,000 mls/hr Documented By: RB Metoprolol Tartrate (Metoprolol Ir 25 Mg Tablet) 25 mg PO NOW ONE Stop: 06/03/24 14:56 Last Admin: 06/03/24 14:59 Dose: 25 mg Documented By: SB Vital Signs Vital signs: Vital Signs - 8 hr 06/03/24 11:15 06/03/24 11:15 06/03/24 11:20 Pulse Rate 114 H Respiratory Rate 14 Blood Pressure 94/72 101/67 Pulse Oximetry 95 Oxygen Delivery Method 06/03/24 11:20 06/03/24 11:25 06/03/24 11:25 Pulse Rate 117 H 120 H Respiratory Rate 15 17 Blood Pressure 83/62 L Pulse Oximetry 95 95 Oxygen Delivery Method 06/03/24 11:30 06/03/24 11:30 06/03/24 11:35 Pulse Rate 117 H Respiratory Rate 12 Blood Pressure 93/68 95/72 Pulse Oximetry 95 Oxygen Delivery Method 06/03/24 11:35 06/03/24 11:40 06/03/24 11:40 Pulse Rate 113 H 110 H Respiratory Rate 16 11 L Blood Pressure 112/72 Pulse Oximetry 95 96 Oxygen Delivery Method 06/03/24 11:45 06/03/24 11:45 06/03/24 11:50 Pulse Rate 114 H 119 H Respiratory Rate 14 16 Blood Pressure 114/74 Pulse Oximetry 97 95 Oxygen Delivery Method 06/03/24 11:50 06/03/24 11:55 06/03/24 11:55 Pulse Rate 116 H Respiratory Rate 13 Blood Pressure 106/71 107/79 Pulse Oximetry 97 Oxygen Delivery Method 06/03/24 12:00 06/03/24 12:00 06/03/24 12:05 Pulse Rate 108 H 113 H Respiratory Rate 17 14 Blood Pressure 115/83 Pulse Oximetry 98 96 Oxygen Delivery Method 06/03/24 12:05 06/03/24 12:10 06/03/24 12:10 Pulse Rate 114 H Respiratory Rate 14 Blood Pressure 104/79 111/76 Pulse Oximetry 96 Oxygen Delivery Method 06/03/24 12:15 06/03/24 12:15 06/03/24 12:20 Pulse Rate 118 H Respiratory Rate 14 Blood Pressure 104/78 114/83 Pulse Oximetry 95 Oxygen Delivery Method 06/03/24 12:20 06/03/24 12:25 06/03/24 12:25 Pulse Rate 116 H 107 H Respiratory Rate 14 13 Blood Pressure 129/78 Pulse Oximetry 96 97 Oxygen Delivery Method 06/03/24 12:30 06/03/24 12:30 06/03/24 12:35 Pulse Rate 119 H Respiratory Rate 16 Blood Pressure 110/71 156/82 H Pulse Oximetry 96 Oxygen Delivery Method 06/03/24 12:35 06/03/24 12:40 06/03/24 12:40 Pulse Rate 129 H 122 H Respiratory Rate 22 12 Blood Pressure 121/71 Pulse Oximetry 97 99 Oxygen Delivery Method 06/03/24 12:44 06/03/24 12:45 06/03/24 12:45 Pulse Rate 120 H 120 H Respiratory Rate 17 13 Blood Pressure 114/80 Pulse Oximetry 99 98 Oxygen Delivery Method 06/03/24 12:50 06/03/24 12:50 06/03/24 12:55 Pulse Rate 118 H 118 H Respiratory Rate 24 24 Blood Pressure 102/83 Pulse Oximetry 96 97 Oxygen Delivery Method 06/03/24 12:55 06/03/24 13:00 06/03/24 13:00 Pulse Rate 117 H Respiratory Rate 14 Blood Pressure 111/69 113/72 Pulse Oximetry 96 Oxygen Delivery Method 06/03/24 13:05 06/03/24 13:05 06/03/24 13:09 Pulse Rate 118 H 117 H Respiratory Rate 11 L 15 Blood Pressure 116/80 Pulse Oximetry 96 95 Oxygen Delivery Method 06/03/24 13:10 06/03/24 13:10 06/03/24 13:15 Pulse Rate 117 H 118 H Respiratory Rate 14 17 Blood Pressure 112/75 Pulse Oximetry 94 96 Oxygen Delivery Method 06/03/24 13:15 06/03/24 13:20 06/03/24 13:20 Pulse Rate 116 H Respiratory Rate 13 Blood Pressure 106/77 111/78 Pulse Oximetry 95 Oxygen Delivery Method 06/03/24 13:25 06/03/24 13:25 06/03/24 13:30 Pulse Rate 115 H 120 H Respiratory Rate 16 23 Blood Pressure 107/67 Pulse Oximetry 96 98 Oxygen Delivery Method 06/03/24 13:30 06/03/24 13:35 06/03/24 13:35 Pulse Rate 113 H Respiratory Rate 17 Blood Pressure 127/62 113/76 Pulse Oximetry 95 Oxygen Delivery Method 06/03/24 13:40 06/03/24 13:40 06/03/24 13:45 Pulse Rate 118 H Respiratory Rate 11 L Blood Pressure 116/79 106/72 Pulse Oximetry 96 Oxygen Delivery Method Room Air 06/03/24 13:45 06/03/24 13:50 06/03/24 13:50 Pulse Rate 116 H 119 H Respiratory Rate 15 12 Blood Pressure 116/80 Pulse Oximetry 94 97 Oxygen Delivery Method 06/03/24 13:55 06/03/24 13:55 06/03/24 14:00 Pulse Rate 126 H 128 H Respiratory Rate 17 15 Blood Pressure 106/62 Pulse Oximetry 94 96 Oxygen Delivery Method 06/03/24 14:03 06/03/24 14:03 06/03/24 14:05 Pulse Rate 124 H 126 H Respiratory Rate 24 19 Blood Pressure 108/71 Pulse Oximetry 98 97 Oxygen Delivery Method Room Air 06/03/24 14:05 06/03/24 14:10 06/03/24 14:10 Pulse Rate 123 H Respiratory Rate 14 Blood Pressure 117/76 123/85 Pulse Oximetry 96 Oxygen Delivery Method 06/03/24 14:15 06/03/24 14:15 06/03/24 14:20 Pulse Rate 118 H Respiratory Rate 13 Blood Pressure 119/78 106/70 Pulse Oximetry 95 Oxygen Delivery Method 06/03/24 14:20 06/03/24 14:25 06/03/24 14:26 Pulse Rate 119 H 120 H 122 H Respiratory Rate 14 21 16 Blood Pressure Pulse Oximetry 96 95 96 Oxygen Delivery Method 06/03/24 14:26 06/03/24 14:30 06/03/24 14:35 Pulse Rate 137 H Respiratory Rate 15 Blood Pressure 122/81 121/84 Pulse Oximetry 95 Oxygen Delivery Method 06/03/24 14:35 06/03/24 14:40 06/03/24 14:40 Pulse Rate 128 H 127 H Respiratory Rate 18 16 Blood Pressure 103/70 Pulse Oximetry 97 96 Oxygen Delivery Method 06/03/24 14:45 06/03/24 14:45 06/03/24 14:50 Pulse Rate 127 H 123 H Respiratory Rate 20 12 Blood Pressure 93/69 Pulse Oximetry 97 94 Oxygen Delivery Method 06/03/24 14:50 06/03/24 14:55 06/03/24 14:55 Pulse Rate 124 H Respiratory Rate 15 Blood Pressure 109/72 106/66 Pulse Oximetry 94 Oxygen Delivery Method 06/03/24 15:00 06/03/24 15:01 06/03/24 15:01 Pulse Rate 125 H 124 H Respiratory Rate 26 H 24 Blood Pressure 124/66 Pulse Oximetry 97 96 Oxygen Delivery Method 06/03/24 15:05 06/03/24 15:05 06/03/24 15:10 Pulse Rate 122 H 122 H Respiratory Rate 12 18 Blood Pressure 106/59 L Pulse Oximetry 95 95 Oxygen Delivery Method 06/03/24 15:10 06/03/24 15:15 06/03/24 15:16 Pulse Rate 123 H 120 H Respiratory Rate 13 14 Blood Pressure 101/73 Pulse Oximetry 96 96 Oxygen Delivery Method 06/03/24 15:16 06/03/24 15:20 06/03/24 15:20 Pulse Rate 119 H Respiratory Rate 16 Blood Pressure 109/78 94/58 L Pulse Oximetry 94 Oxygen Delivery Method 06/03/24 15:25 06/03/24 15:25 06/03/24 15:31 Pulse Rate 115 H Respiratory Rate 13 Blood Pressure 99/64 109/65 Pulse Oximetry 95 Oxygen Delivery Method Room Air 06/03/24 15:41 Pulse Rate 110 H Respiratory Rate 20 Blood Pressure 109/65 Pulse Oximetry 97 Oxygen Delivery Method Room Air MDM - Arrhythmia/Palpitations Lab Data 06/03/24 10:50 06/03/24 10:50 Labs: Lab Results 06/03/24 Range/Units 10:50 WBC 8.3 (4.5-11.0) X10^3/uL RBC 3.90 L (4.5-5.9) X10^6/uL Hgb 12.3 L (13.5-17.5) g/dL Hct 36.2 L (41-53) % MCV 92.9 (80-100) fL MCH 31.6 (26-34) PG MCHC 34.0 (30-36) % RDW 13.0 (11.6-14.8) % Plt Count 283 (150-400) X10^3/uL Neut % (Auto) 79.3 H (50-75) % Lymph % (Auto) 8.2 L (25-40) % Dillon % (Auto) 9.7 (3-14) % Eos % (Auto) 1.9 L (2-4) % Baso % (Auto) 0.9 (0-2) % Neut # (Auto) 6600 (7346-5247) /uL Lymph # (Auto) 700 L (9600-8535) /uL Dillon # (Auto) 800 (0-900) /uL Eos # (Auto) 200 (0-450) /uL Baso # (Auto) 100 (0-100) /uL PT 13.1 H (9.4-12.5) SECONDS INR 1.2 (0.9-1.3) APTT 30 (25.1-36.5) SECONDS Sodium 135 L (137-145) mmol/L Potassium 4.5 (3.4-5.1) mmol/L Chloride 101 (98-107) mmol/L Carbon Dioxide 26 (22-32) mmol/L BUN 26 H (9-20) mg/dL Creatinine 1.08 (0.66-1.25) mg/dL Estimated GFR > 60 (>60) mL/min BUN/Creatinine Ratio 24.1 H (6-22) Glucose 122 H (80-110) mg/dL Calcium 9.1 (8.4-10.2) mg/dL Magnesium 2.1 (1.6-2.3) mg/dL Total Bilirubin 1.3 (0.2-1.3) mg/dL AST 41 (17-59) IU/L ALT 32 (<50) IU/L Alkaline Phosphatase 65 (38-126) U/L Total Creatine Kinase 89 (55-170) U/L Troponin I < 0.012 (0.01-0.034) ng/mL NT-Pro-B Natriuret Pep 1240 H (<450) pg/mL Total Protein 7.3 (6.3-8.2) g/dL Albumin 4.3 (3.5-5.0) g/dL Globulin 3.0 (1.7-4.1) g/dL Albumin/Globulin Ratio 1.4 (1.0-2.8) Lipase 63 (23-300) U/L MDM Narrative Medical decision making narrative: Labs show normal white count, hemoglobin of 12 consistent with prior earlier this week, platelets are 283. INR is 1.2 sodium is 135 BUN 26, potassium 4.5 with a Mag of 2.1, creatinine is 1.08 glucose is 122 troponins less than 0.012 with a BNP of 1240. Patient had chest x-ray with no acute change EKG shows AFib with rapid ventricular response rate of 117, QRS of 90 QTC of 491, no acute ST elevation or depression appreciated. Patient has prior from 05/30/2024 which also showed atrial fibrillation. 83-year-old male history of known atrial fibrillation not fully anticoagulated secondary to bleeding issues he is currently taking 81 mg aspirin b.i.d. as he had a recent knee replacement. He has had 3 visits in the past week during that he has been in atrial fibrillation each time self converted the 03 06, had cardioversion on Monday. He also had DVT and CT angio to evaluate and rule out blood clots. Workup today does not show any major electrolyte abnormalities chest x-ray is clear, patient was in AFib RVR. Rates about 117 pressures were soft initially but improved with the fluids. Discussed with patient because he has had intermittent atrial fibrillation and not fully anticoagulated I would discuss with his development technologist before cardioverting. He also notes he has not appointment tomorrow and if they preferred he would feel comfortable following up without cardioversion. Spoke with Cardiology, Dr. Schmitt with [facility] states no to cardioversion as patient is not fully anticoagulated. Would recommend increasing his beta don. Patient does have an appointment tomorrow patient overall feels okay in his comfortable not being cardioverted today.. Patient was given additional dose of 25 mg metoprolol here in the department. He states he feels much better he does not wish to wait to see if it improves his heart rate he feels comfortable returning home. Discussed to continue to monitor at home can take 1-1/2 tabs of his metoprolol this evening depending on how he was feeling patient has follow up tomorrow so we will not give a prescription. Discharge Plan Departure Patient Disposition: Home Clinical Impression: Atrial fibrillation with rapid ventricular response Instructions: DI for Atrial Fibrillation Activity Restrictions/Additional Instructions: Follow up with Cardiology at your appointment tomorrow. You have got a dose of oral metoprolol here in the department. Re-evaluate how you feel at if you are able check your heart rate and blood pressure if you are heart rate still elevated in your blood pressure is not too low you can take 1 and 1/2 tablets of your normal metoprolol dose. Please return for new or worsening symptoms, lightheadedness or passing out, chest pain, shortness of breath, new swelling in extremities any vomiting or other new or concerning changes. Prescriptions: No Action aspirin 81 mg Tablet,Delayed Release (Dr/Ec) 81 mg PO BID Qty: 60 0RF metoprolol succinate 50 mg tablet extended release 24 hr 100 mg PO BID dofetilide 250 mcg capsule 250 mcg PO ONCE finasteride 5 mg tablet 5 mg PO DAILY Qty: 90 3RF tamsulosin 0.4 mg capsule 0.4 mg PO BEDTIME Qty: 90 3RF Referrals: Elie Guillory MD [Primary Care Provider] - Stand Alone Forms: Patient Portal/API/Survey
[2024-06-03] MEDS: METOPROLOL IR 25 MG TABLET PO (14:59)
== END 2024-06-03 15:38 | disposition home or self-care (01) ==
PROVIDERS: Emergency Provider Emergency Medicine; PCP Family Medicine
DX: I48.20 Chronic atrial fibrillation, unspecified (principal); Z79.82 Long term (current) use of aspirin; R53.1 Weakness
CPT/HCPCS: 36415; 71045; 80053; 82550; 83690; 83735; 83880; 84484; 85025; 85610; 85730; 93005; 96360; 99284